=== PATIENT | female | born 1985 | race Caucasian/White ===

== ENCOUNTER 2016-06-25 16:18 | Emergency (ER) | payer OTHER ==
[2016-06-25 16:26] VITALS: BP 126/65
== END 2016-06-25 16:42 | disposition left against medical advice (07) ==
LOC: ED 16:18
DX: K08.89 Other specified disorders of teeth and supporting structures (principal); Z53.21 Procedure and treatment not carried out due to patient leaving prior to being seen by health care provider

== ENCOUNTER 2016-07-07 19:24 | Emergency (ER) | payer OTHER ==
[2016-07-07 19:41] VITALS: BP 123/69
[2016-07-07] MEDS ORDERED: HYDROcodone/ACETAMIN 5-325 MG* 1 TAB PO ONE ×2 (21:43→22:38)
--- NOTE | 2016-07-07 22:34 | RAD ---
Indication: Trismus, left-sided jaw pain. CT of the facial bones was obtained in the axial plane. Sagittal and coronal reconstructed images were obtained. The mandible demonstrates no evidence of fracture. Temporomandibular joints are in expected location. The pterygoid muscles and masseter muscles are unremarkable. The maxilla demonstrates no evidence of fracture. Pterygoid plates are unremarkable. Nasal septal deviation towards the right is noted. Mucosal thickening of the left maxillary sinus is noted. Ethmoid air cells are unremarkable. The sphenoid sinuses demonstrates mucosal thickening of the right sphenoid sinus. Mastoid air cells are otherwise unremarkable. There is a dental caries noted in the posterior lateral surface of the left lower first molar. Additional dental caries is noted in the left upper first molar posteriorly. Other dental caries are noted. No definite abscess is identified. IMPRESSION: UNREMARKABLE MANDIBLE OR FACIAL BONES. MUCOSAL THICKENING OF THE ETHMOID AIR CELLS, LEFT MAXILLARY SINUS AND SPHENOID SINUS. MULTIPLE DENTAL CARIES ARE NOTED ESPECIALLY IN THE LEFT LOWER FIRST MOLAR AND LEFT UPPER FIRST MOLAR.
[2016-07-07] MEDS ORDERED: LoraTADine TAB(NF) 10 MG TAB (AUTOSUB to CETIRIZINE) PO ONE (22:37)
[2016-07-07] MEDS ORDERED: Cephalexin CAP* 500 MG PO ONE ×2 (22:38→22:52)
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
== END 2016-07-07 23:15 | disposition home or self-care (01) ==
LOC: ED 19:24
DX: S02.5XXA Fracture of tooth (traumatic), initial encounter for closed fracture (principal); K08.89 Other specified disorders of teeth and supporting structures; F17.200 Nicotine dependence, unspecified, uncomplicated; Z88.0 Allergy status to penicillin; X58.XXXA Exposure to other specified factors, initial encounter; Y92.9 Unspecified place or not applicable
CPT/HCPCS: 70486; 87651; 99282; A9270-GY

== ENCOUNTER 2016-07-18 13:55 | Emergency (ER) | payer OTHER ==
[2016-07-18 14:09] VITALS: BP 136/71
[2016-07-18] MEDS ORDERED: oxyCODONE/Acetamin 5/325 MG* TAB PO ONE (15:24)
[2016-07-18] MEDS ORDERED: Cephalexin CAP* 500 MG PO ONE (15:24)
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
== END 2016-07-18 15:35 | disposition home or self-care (01) ==
LOC: ED 13:55
DX: K08.89 Other specified disorders of teeth and supporting structures (principal); F17.210 Nicotine dependence, cigarettes, uncomplicated
CPT/HCPCS: 99282; A9270-GY

== ENCOUNTER 2016-07-19 14:13 | Emergency (ER) | payer OTHER ==
[2016-07-19 14:17] VITALS: BP 121/72
[2016-07-19] MEDS ORDERED: oxyCODONE/Acetamin 5/325 MG* TAB PO ONE (15:38)
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
== END 2016-07-19 16:12 | disposition home or self-care (01) ==
LOC: ED 14:13
DX: S02.5XXA Fracture of tooth (traumatic), initial encounter for closed fracture (principal); K08.89 Other specified disorders of teeth and supporting structures; F17.210 Nicotine dependence, cigarettes, uncomplicated; W50.1XXA Accidental kick by another person, initial encounter; Y93.9 Activity, unspecified; Y92.9 Unspecified place or not applicable; Y99.9 Unspecified external cause status
CPT/HCPCS: 99281; A9270-GY

== ENCOUNTER 2016-08-02 14:59 | Emergency (ER) | payer OTHER ==
[2016-08-02] MEDS ORDERED: oxyCODONE/Acetamin 5/325 MG* TAB PO ONE (17:49)
[2016-08-02] MEDS ORDERED: DOXYcycline CAP(*) 100 MG PO ONE (17:56)
[2016-08-02 18:04] VITALS: BP 143/87
--- NOTE | 2016-08-02 18:33 | ED ---
Skin Complaint - HPI Summary HPI Summary: 31F w/ PMH of MRSA presents with abscess of right leg for 4 days. She states she had a boil that placed bandage on and when she took off bandage it ripped the skin off and she noticed some pus from it. She states that the redness spread and has been oozing some pus. She states this is how her normal MRSA looks. She states she is allergic to bactrim and resistant to clindamycin. She takes minocycline normal for it. She denies any fever. She denies any burn to the area. She denies any new products. - History of Current Complaint Chief Complaint: EDExtremityLower Time Seen by Provider: 08/02/16 17:37 Stated Complaint: LEG INFECTION Pain Intensity: 10 - Allergy/Home Medications Allergies/Adverse Reactions: Allergies Allergy/AdvReac Type Severity Reaction Status Date / Time Diphenhydramine Allergy Anaphylatic Verified 07/07/16 20:46 [From Benadryl] Shock Ibuprofen Allergy GI Upset Verified 07/18/16 14:47 Ketorolac Tromethamine Allergy Nausea And Verified 07/07/16 20:46 [From Toradol] Vomiting Linezolid Allergy Unknown Verified 07/18/16 14:47 Reaction Details Naproxen Allergy Nausea And Verified 07/07/16 20:46 Vomiting Penicillins [PCN] Allergy Rash Verified 07/07/16 20:46 Sulfamethoxazole Allergy Unknown Verified 07/18/16 14:43 w/Trimethoprim Reaction [From Bactrim] Details Tramadol Allergy Rash Verified 07/07/16 20:46 PMH/Surg Hx/FS Hx/Imm Hx Endocrine/Hematology History: Reports: Other Endocrine/Hematological Disorders - pituitary tumor Denies: Hx Diabetes Cardiovascular History: Denies: Hx Hypertension, Hx Pacemaker/ICD Respiratory History: Denies: Hx Asthma History: Reports: Other Problems/Disorders - KIDNEY AND BLADDER INFECTIONS Denies: Hx Renal Disease - HX KIDNEY INFECTIONS Sensory History: Denies: Hx Hearing Aid Psychiatric History: Denies: Hx Panic Disorder - Cancer History Cancer Type, 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 2005 RT GREAT TOE SURGERY;. 2007 GALLBLADDER, T. TUBAL LIGATION;. MRSA- RT ARM SWEAT GLANDS REMOVED, 2010. LT BACK SHOULDER; 2014. STAGE 2 CERVICAL CA PROCEDURE; Infectious Disease History: No Infectious Disease History: Denies: Traveled Outside the [place] in Last 30 Days - Family History Known Family History: Positive: None Negative: Cardiac Disease - Social History Alcohol Use: None Hx Substance Use: No Substance Use Type: Reports: None Hx Tobacco Use: Yes Smoking Status (MU): Heavy Every Day Tobacco Smoker Review of Systems Positive: Fever Negative: Chest Pain Negative: Shortness Of Breath Positive: Other - redness of right calf All Other Systems Reviewed And Are Negative: Yes Physical Exam Triage Information Reviewed: Yes Vital Signs On Initial Exam: Initial Vitals Temp Pulse Resp BP Pulse Ox 98.6 F 93 18 134/85 100 08/02/16 15:19 08/02/16 15:19 08/02/16 15:19 08/02/16 15:19 08/02/16 15:19 Vital Signs Reviewed: Yes Appearance: Positive: Well-Appearing Skin: Positive: Warm, Other - 15 cm by 10 cm area of pustular cellulitis on right calf with some surrounding streaking, no area of loculation felt or crepitus. Head/Face: Positive: Normal Head/Face Inspection Eyes: Positive: Normal, Conjunctiva Clear Respiratory/Lung Sounds: Positive: Clear to Auscultation, Breath Sounds Present Cardiovascular: Positive: Normal, RRR Musculoskeletal: Positive: Strength/ROM Intact - of right knee and ankle, Other - good pulses - Nitin Coma Scale Coma Scale Total: 15 Diagnostics - Vital Signs Vital Signs Temp Pulse Resp BP Pulse Ox 08/02/16 17:57 99.2 F 73 16 143/87 99 08/02/16 17:56 18 08/02/16 15:19 98.6 F 93 18 134/85 100 - Laboratory Lab Statement: Any lab studies that have been ordered have been reviewed, and results considered in the medical decision making process. Course/Dx - Course Course Of Treatment: 31F presents with boil that ruptured with pustular discharge that became large area of erythema on right calf over past 4 days. states this is how her MRSA strain looks like. has seen dr Wang in past for this. is resitant to clindamycin. on exam appears to be pustular cellulitis ( almost looks burn like) with no palpable area of loculation and no crepitus felt. afebrile. will treat with doxcycline and gave pain medication. patient understands and agrees with plan - Differential Diagnoses - Skin Complaint Differential Diagnoses: Abscess, Cellulitis, Contact Dermatitis - Diagnoses Provider Diagnoses: Cellulitis of right leg Discharge - Discharge Plan Condition: Good Disposition: HOME Prescriptions: DOXYcycline CAP(*) [DOXYcycline 100MG CAP(*)] 100 mg PO BID #19 cap oxyCODONE/Acetamin 5/325 MG* [Percocet 5/325 TAB*] 1 tab PO Q6H PRN #12 tab MDD 4 PRN Reason: Pain Patient Education Materials: Cellulitis (ED) Referrals: No Primary Care Phys,NOPCP [Primary Care Provider] - Additional Instructions: Take doxycycline twice a day for 10 days, first dose given in ED Place ice on area, keep elevated Use Tylenol every 6 hours and take narcotic every 6 hours for break through pain Return to ED if redness spreads, develop fever, or any new or worsening symptoms
== END 2016-08-02 18:52 | disposition home or self-care (01) ==
LOC: ED 14:59
DX: L03.115 Cellulitis of right lower limb (principal); R50.9 Fever, unspecified; F17.210 Nicotine dependence, cigarettes, uncomplicated
CPT/HCPCS: 99282; A9270-GY

== ENCOUNTER 2016-08-23 10:31 | Emergency (ER) | payer OTHER ==
[2016-08-23 10:52] VITALS: BP 145/81
[2016-08-23] MEDS ORDERED: Clindamycin CAP* 150 MG PO ONE (11:25)
--- NOTE | 2016-08-30 10:21 | ED ---
Lower Extremity - HPI Summary HPI Summary: Patient presents after being referred by Dr. Wang's nurse for evaluation of a chronic wound. She says she has been placed on doxycycline by a provider at this facility, but "knows she needs keflex to heal her wound" even though she has MRSA. She has been using narcotic medication for pain and has run out as well. The wound is on the outside of the left leg and she says she had an Abdullahi bandage over it that became embedded in the tissue and was "ripped away when she took it off". She denies fever, chills, increased redness or streaking. There is a clear drainage from the area without swelling but she reports it is too painful to walk. - History of Current Complaint Chief Complaint: EDExtremityLower Stated Complaint: WOUND ON LT LEG Time Seen by Provider: 08/23/16 10:58 Hx Obtained From: Patient, Family/Solo Musician Onset of Pain: Days Onset/Duration: Still Present Severity Initially: Moderate Severity Currently: Severe Pain Intensity: 8 Pain Scale Used: Adult Non Verbal Timing: Constant Location: Is Discrete @ - left lateral calf Character Of Pain: Sharp, Aching, Burning Associated Signs And Symptoms: Positive: Redness Aggravating Factor(s): Standing Alleviating Factor(s): Nothing Able to Bear Weight: Yes - Allergies/Home Medications Allergies/Adverse Reactions: Allergies Allergy/AdvReac Type Severity Reaction Status Date / Time Diphenhydramine Allergy Anaphylatic Verified 08/20/16 11:59 [From Benadryl] Shock Ibuprofen Allergy GI Upset Verified 08/20/16 11:59 Ketorolac Tromethamine Allergy Nausea And Verified 08/20/16 11:59 [From Toradol] Vomiting Linezolid Allergy Unknown Verified 08/20/16 11:59 Reaction Details Naproxen Allergy Nausea And Verified 08/20/16 11:59 Vomiting Penicillins [PCN] Allergy Rash Verified 08/20/16 11:59 Sulfamethoxazole Allergy Unknown Verified 08/20/16 11:59 w/Trimethoprim Reaction [From Bactrim] Details Tramadol Allergy Rash Verified 08/20/16 11:59 PMH/Surg Hx/FS Hx/Imm Hx Endocrine/Hematology History: Reports: Other Endocrine/Hematological Disorders - pituitary tumor Denies: Hx Diabetes Cardiovascular History: Denies: Hx Hypertension, Hx Pacemaker/ICD Respiratory History: Denies: Hx Asthma History: Reports: Other Problems/Disorders - KIDNEY AND BLADDER INFECTIONS Denies: Hx Renal Disease - HX KIDNEY INFECTIONS Sensory History: Denies: Hx Hearing Aid Psychiatric History: Denies: Hx Panic Disorder - Cancer History Cancer Type, 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 2004 RT GREAT TOE SURGERY;. 2007 GALLBLADDER, T. TUBAL LIGATION;. MRSA- RT ARM SWEAT GLANDS REMOVED, 2009. LT BACK SHOULDER; 2014. STAGE 2 CERVICAL CA PROCEDURE; Infectious Disease History: Yes Infectious Disease History: Denies: Traveled Outside the [place] in Last 30 Days - Family History Known Family History: Positive: None Negative: Cardiac Disease - Social History Occupation: Unemployed Lives: With Family Alcohol Use: None Hx Substance Use: No Substance Use Type: Reports: None Hx Tobacco Use: Yes Smoking Status (MU): Heavy Every Day Tobacco Smoker Cessation Counseling: Patient Advised to Stop Review of Systems Negative: Edema Positive: Other - 4x4 cm well healing wound to left lateral calf Negative: Paresthesia, Numbness All Other Systems Reviewed And Are Negative: Yes Physical Exam - Summary Physical Exam Summary: Patient is curled in position crying, and asking for pain medication when I enter room. Triage Information Reviewed: Yes Vital Signs On Initial Exam: Initial Vitals Temp Pulse Resp BP 98.5 F 77 20 145/81 08/23/16 10:50 08/23/16 10:50 08/23/16 10:50 08/23/16 10:50 Vital Signs Reviewed: Yes Appearance: Positive: Well-Appearing, Well-Nourished, Pain Distress Skin: Positive: Warm, Skin Color Reflects Adequate Perfusion, Dry, Tender - 4 x 4 cm area with beefy red granulation tissue within the wound without extending erythema or streaking. Serosanguinous drainage noted without signs of infection. , Soft Head/Face: Positive: Normal Head/Face Inspection Eyes: Positive: EOMI, TIA, Conjunctiva Clear Respiratory/Lung Sounds: Positive: Breath Sounds Present Cardiovascular: Positive: RRR Musculoskeletal: Positive: Limited @ - Patient unwilling to attempt to move her knee or ankle. No edema or erythema noted Neurological: Positive: Sensory/Motor Intact, Alert, Oriented to Person Place, Time, Unable to Assess Gait Psychiatric: Positive: Other - patient cries during exam AVPU Assessment: Alert Diagnostics - Vital Signs Vital Signs Temp Pulse Resp BP Pulse Ox 08/23/16 11:41 98.7 F 08/23/16 10:52 98.6 F 78 20 145/81 99 08/23/16 10:50 98.5 F 77 20 145/81 - Laboratory Lab Statement: Any lab studies that have been ordered have been reviewed, and results considered in the medical decision making process. Lower Extremity Course/Dx - Course Course Of Treatment: I let the patient know I would be happy to give her Tylenol for her pain but that narcotic medication was not appropriate for her condition. I called Dr. Wang's office to confer with him regarding this patient's care. I was informed by nursing that the patient left without accepting treatment. I spoke with Dr. Wang afterwards, who said he would see her in his office. - Diagnoses Differential Diagnosis/HQI/PQRI: Positive: Burn, Cellulitis, Compartment Syndrome, DVT, Gout, Infection, Phlebitis, Sprain, Strain Provider Diagnoses: Healing wound Discharge - Discharge Plan Condition: Stable Disposition: HOME Prescriptions: Clindamycin Cap(NF) [Cleocin 300 mg Cap(NF)] 300 mg PO Q6H #39 cap Patient Education Materials: Acute Wound Care (ED) Referrals: Kathleen RICARDO,Syed Rodriguez [Medical Doctor] - No Primary Care Phys,NOPCP [Primary Care Provider] - Additional Instructions: Please stop taking the doxycycline and begin using Clindamycin as prescribed until it is completely gone. Keep your wound open to air and if you do need to cover it, you need to use non-stick dressing or you will continue to tear away the healing skin that appears to be growing now. You may have some mild drainage but unless it is green like mucous, it can be normal. If you develop a temperature of 100.4 or greater or you notice red streak running up your leg, return to the ED for evaluation. Call Dr. Wang's office for an appointment.
== END 2016-08-23 11:41 | disposition home or self-care (01) ==
LOC: ED 10:31
DX: S81.802A Unspecified open wound, left lower leg, initial encounter (principal); X58.XXXA Exposure to other specified factors, initial encounter; Y93.9 Activity, unspecified; Y92.89 Other specified places as the place of occurrence of the external cause; F17.210 Nicotine dependence, cigarettes, uncomplicated
CPT/HCPCS: 99282; A9270-GY

== ENCOUNTER 2016-08-31 20:14 | Emergency (ER) | payer OTHER ==
[2016-08-31] MEDS ORDERED: oxyCODONE/Acetamin 5/325 MG* TAB PO ONE (21:00)
[2016-08-31 21:41] VITALS: BP 122/67
--- NOTE | 2016-08-31 22:35 | ED ---
Elmo Godfrey Alfonso, scribed for Yrn Beard MD on 08/31/16 at 2058 . Lower Extremity - HPI Summary HPI Summary: This patient is a 31 year old female presenting to [facility] for a swollen left leg since 11 days ago. Her left LE is wounded and erythematous. Sx aggravated by ambulation and alleviated by nothing. She rates the sharp pain 9/10 in severity and reports it hurts so bad I cant sleep. She is being seen by Dr. Wang for this infection and is currently on abx. PMHx of MRSA infections and cervical cancer. - History of Current Complaint Chief Complaint: EDExtremityLower Stated Complaint: LT LEG SWOLLEN Time Seen by Provider: 08/31/16 20:47 Hx Obtained From: Patient Onset of Pain: Days - 11 days, Prior to Arrival Onset/Duration: Still Present - 11 days Severity Initially: Severe Severity Currently: Severe Pain Intensity: 9 Pain Scale Used: 0-10 Numeric Timing: Constant Location: Is Discrete @ - Left LE Character Of Pain: Sharp Associated Signs And Symptoms: Positive: Swelling, Redness Aggravating Factor(s): Ambulation Alleviating Factor(s): Rest - Allergies/Home Medications Allergies/Adverse Reactions: Allergies Allergy/AdvReac Type Severity Reaction Status Date / Time Diphenhydramine Allergy Anaphylatic Verified 08/20/16 11:59 [From Benadryl] Shock Ibuprofen Allergy GI Upset Verified 08/20/16 11:59 Ketorolac Tromethamine Allergy Nausea And Verified 08/20/16 11:59 [From Toradol] Vomiting Linezolid Allergy Unknown Verified 08/20/16 11:59 Reaction Details Naproxen Allergy Nausea And Verified 08/20/16 11:59 Vomiting Penicillins [PCN] Allergy Rash Verified 08/20/16 11:59 Sulfamethoxazole Allergy Unknown Verified 08/20/16 11:59 w/Trimethoprim Reaction [From Bactrim] Details Tramadol Allergy Rash Verified 08/20/16 11:59 PMH/Surg Hx/FS Hx/Imm Hx Endocrine/Hematology History: Reports: Other Endocrine/Hematological Disorders - pituitary tumor Denies: Hx Diabetes Cardiovascular History: Denies: Hx Hypertension, Hx Pacemaker/ICD Respiratory History: Denies: Hx Asthma History: Reports: Other Problems/Disorders - KIDNEY AND BLADDER INFECTIONS Denies: Hx Renal Disease - HX KIDNEY INFECTIONS Sensory History: Denies: Hx Hearing Aid Psychiatric History: Denies: Hx Panic Disorder - Cancer History Cancer Type, 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 2004 RT GREAT TOE SURGERY;. 2007 GALLBLADDER, T. TUBAL LIGATION;. MRSA- RT ARM SWEAT GLANDS REMOVED, 2009. LT BACK SHOULDER; 2014. STAGE 2 CERVICAL CA PROCEDURE; Infectious Disease History: Yes Infectious Disease History: Denies: Traveled Outside the [place] in Last 30 Days - Family History Known Family History: Negative: Cardiac Disease - Social History Alcohol Use: None Hx Substance Use: No Substance Use Type: Reports: None Hx Tobacco Use: Yes Smoking Status (MU): Heavy Every Day Tobacco Smoker Review of Systems Negative: Fever Positive: Edema - Left LE Positive: Other - wounded and erythematous left LE All Other Systems Reviewed And Are Negative: Yes Physical Exam Triage Information Reviewed: Yes Vital Signs On Initial Exam: Initial Vitals Temp Pulse Resp BP Pulse Ox 97.6 F 79 16 128/68 100 08/31/16 20:15 08/31/16 20:15 08/31/16 20:15 08/31/16 20:15 08/31/16 20:15 Vital Signs Reviewed: Yes Appearance: Positive: Well-Appearing, No Pain Distress Skin: Positive: Other - Erythematous area in her left LE laterally Head/Face: Positive: Normal Head/Face Inspection Eyes: Positive: Normal ENT: Positive: Normal ENT inspection Neck: Positive: Supple, Nontender Respiratory/Lung Sounds: Positive: Clear to Auscultation, Breath Sounds Present Cardiovascular: Positive: RRR Abdomen Description: Positive: Nontender, Soft Bowel Sounds: Positive: Present Musculoskeletal: Positive: Edema Left - Left foot diffusely swollen Neurological: Positive: Normal, Sensory/Motor Intact, Alert, Oriented to Person Place, Time, CN Intact II-III Psychiatric: Positive: Normal - [place] Coma Scale Coma Scale Total: 15 Diagnostics - Vital Signs Vital Signs Temp Pulse Resp BP Pulse Ox 08/31/16 20:45 97.6 F 79 16 126/78 99 08/31/16 20:15 97.6 F 79 16 128/68 100 - Laboratory Lab Statement: Any lab studies that have been ordered have been reviewed, and results considered in the medical decision making process. Lower Extremity Course/Dx - Course Course Of Treatment: Ms. Villanueva has a convoluted story of rash and antibiotics and changing PMDs. The bottom line is that she wants something for pain from her infection which is being treated by Dr. Wang. I sent her home with some percocets and recommended that she F/U with her own MD's for chronic pain control. - Diagnoses Provider Diagnoses: Skin infection Discharge - Discharge Plan Condition: Stable Disposition: HOME Patient Education Materials: Wound Infection (ED) Referrals: Kathleen RICARDO,Syed Rodriguez [Medical Doctor] - 3 Days The documentation as recorded by the Elmo sommer Alfonso accurately reflects the service I personally performed and the decisions made by me, Yrn Beard MD.
== END 2016-08-31 21:41 | disposition home or self-care (01) ==
LOC: ED 20:14
DX: L08.9 Local infection of the skin and subcutaneous tissue, unspecified (principal); Z88.0 Allergy status to penicillin
CPT/HCPCS: 99282; A9270-GY

== ENCOUNTER 2016-10-10 20:48 | Emergency (ER) | payer OTHER ==
[2016-10-11] MEDS ORDERED: Ondansetron INJ* 2 MG/ML VIAL IV ONE (02:23)
[2016-10-11] MEDS ORDERED: Morphine INJ* 4 MG/ML 1 ML SYRINGE IV ONE ×2 (02:23→03:52)
[2016-10-11] MEDS ORDERED: NS 0.9% 1000 ML* 1,000 ML IV ONE (02:23)
--- NOTE | 2016-10-11 02:32 | ED ---
Abdominal Pain/Female - HPI Summary HPI Summary: Pt here w/ lower ab pain x 3-4 days. Noticed this started the day she was supposed to start her period - felt like cramping pain as though she may get her period but never got period and pain has gotten worse. She is sexually active with her but does not believe she's as she's had a tubal ligation. Denies vaginal irritation, d/c or foul odor and no dyspareunia nor post coital bleeding. She does have a h/o "aggressive" cervical cancer cells and had a procedure to remove part of cervix only. 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 She does not have a f.u until October. No h/o ovarian issues. Associated sx are nausea w/ vomiting (intermittently). BM's have been normal. Nausea is better if she lies on her side, worse w/ moving around. Denies dysuria, urinary frequency, flank pain. Also denies fever, chills. She also reports Lt foot pain w/ acute on chronic wound. Has h/o MRSA and has been slowly healing here. Recently knicked foot on a wire basket on the floor - peeled scab and redness, pain and swelling worse since. Pain w/ moving toes, ankle. Reports doxycycline doesn't work anymore but she's had clindamycin and keflex in the past. - History of Current Complaint Chief Complaint: EDAbdHolland Stated Complaint: ABD PAIN,LEFT FOOT PAIN Time Seen by Provider: 10/11/16 01:39 Hx Obtained From: Patient Pain Intensity: 8 Allergies/Adverse Reactions: Allergies Allergy/AdvReac Type Severity Reaction Status Date / Time Diphenhydramine Allergy Anaphylatic Verified 08/20/16 11:59 [From Benadryl] Shock Ibuprofen Allergy GI Upset Verified 08/20/16 11:59 Ketorolac Tromethamine Allergy Nausea And Verified 08/20/16 11:59 [From Toradol] Vomiting Linezolid Allergy Unknown Verified 08/20/16 11:59 Reaction Details Naproxen Allergy Nausea And Verified 08/20/16 11:59 Vomiting Penicillins [PCN] Allergy Rash Verified 08/20/16 11:59 Sulfamethoxazole Allergy Unknown Verified 08/20/16 11:59 w/Trimethoprim Reaction [From Bactrim] Details Tramadol Allergy Rash Verified 08/20/16 11:59 PMH/Surg Hx/FS Hx/Imm Hx Previously Healthy: Yes Endocrine/Hematology History: Reports: Other Endocrine/Hematological Disorders - pituitary tumor Denies: Hx Anticoagulant Therapy, Hx Blood Disorders, Hx Diabetes, Hx Thyroid Disease, Hx Anemia, Autoimmune Disease Cardiovascular History: Denies: Hx Hypertension, Hx Pacemaker/ICD Respiratory History: Denies: Hx Asthma GI History: Reports: Hx Gall Bladder Disease - h/o cholecystectomy History: Reports: Other Problems/Disorders - KIDNEY AND BLADDER INFECTIONS Denies: Hx Renal Disease - HX KIDNEY INFECTIONS Sensory History: Denies: Hx Hearing Aid Psychiatric History: Denies: Hx Panic Disorder, Hx Substance Abuse - Cancer History Cancer Type, 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 2004 RT GREAT TOE SURGERY;. 2007 GALLBLADDER, T. TUBAL LIGATION;. MRSA- RT ARM SWEAT GLANDS REMOVED, 2009. LT BACK SHOULDER; 2014. 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 Lives: With Family - Alcohol Use: None Hx Substance Use: No Substance Use Type: Reports: None Hx Tobacco Use: Yes Smoking Status (MU): Current Every Day Smoker Amount Used/How Often: 1 PPD Review of Systems Constitutional: Negative Positive: Dental Pain - Rt upper rear tooth w/ suspected abscess last week - ruptured, pain less, foul taste in mouth at times, less swelling since rupture, Sore Throat - last week, Nasal Discharge - this week Cardiovascular: Negative Negative: Palpitations, Chest Pain Positive: Cough - new onset Gastrointestinal: Other - see HPI Genitourinary: Negative Musculoskeletal: Other - see HPI Skin: Other - see HPI Neurological: Negative Negative: Headache, Weakness, Paresthesia, Numbness, Syncope, Slurred Speech Positive: Anxious All Other Systems Reviewed And Are Negative: Yes Physical Exam Triage Information Reviewed: Yes Vital Signs On Initial Exam: Initial Vitals Temp Pulse Resp BP Pulse Ox 97.9 F 97 22 130/70 99 10/10/16 21:16 10/10/16 21:16 10/10/16 21:16 10/10/16 21:16 10/10/16 21:16 Vital Signs Reviewed: Yes Appearance: Positive: Ill-Appearing, Pain Distress, Obese Skin: Positive: Warm, Dry - linear scab over Lt dorsal foot from MTP joint up to mid dorsal metatarsal - pink, TTP, no induration or drainage Head/Face: Positive: Normal Head/Face Inspection Eyes: Positive: Normal, EOMI, Other: - sclera injected. Negative: Discharge ENT: Positive: Hearing grossly normal, Pharynx normal - mucosa moist, Nasal congestion, TMs normal. Negative: Tonsillar swelling, Tonsillar exudate Neck: Positive: Supple, Nontender, No Lymphadenopathy Respiratory/Lung Sounds: Positive: Clear to Auscultation, Breath Sounds Present. Negative: Rales, Rhonchi, Wheezes Cardiovascular: Positive: Normal, RRR, Pulses are Symmetrical in both Upper and Lower Extremities, S1, S2. Negative: Murmur, Rub, Leg Edema Left, Leg Edema Right Abdomen Description: Positive: No Organomegaly, Soft, Other: - lower ab TTP B/L - no rebounding. Negative: CVA Tenderness (R), CVA Tenderness (L) Bowel Sounds: Positive: Present Pelvic Exam: Positive: external exam normal, discharge - white,mucousy, tender adnexa - Rt and Lt, other - cervix poorly visualized (tipped). Negative: no cerv. motion tender, active bleeding Musculoskeletal: Positive: Limited @ - Lt toe movements d/t pain at wound site - no joint edema - otherwise, moving well Neurological: Positive: Normal, Sensory/Motor Intact, Alert, Oriented to Person Place, Time, CN Intact II-III Psychiatric: Positive: Other - restless - concerned but cooperative - interjects information, appears concerned as well - [place] Coma Scale Coma Scale Total: 15 Diagnostics - Vital Signs Vital Signs Temp Pulse Resp BP Pulse Ox 10/11/16 01:00 56 16 97 10/10/16 23:01 98 F 71 16 101/53 97 10/10/16 21:16 97.9 F 97 22 130/70 99 - Laboratory Result Diagrams: 10/11/16 02:37 10/11/16 02:37 Lab Statement: Any lab studies that have been ordered have been reviewed, and results considered in the medical decision making process. Abdominal Pain Fem Course/Dx - Course Course Of Treatment: Pt presents w/ multiple sx. 1) lower ab pain + n/v x 3-4 days. Pt and partner are concerned about h/o cancer cells found in cervix - removed but pt has return of cells and HPV as of Apr 2016 - f/u in October. She does have h/o ab surgeries - moving bowels well. No urinary sx but U/A + bacteria. Vaginal swabs taken as well - no bettie infection nor structural abnormality however pt does have adnexal tenderness. 2) Also reports new onset cough w/o fever, SOB. Smokes. 3) Lt foot pain w/ recurrent infection. H/o MRSA. Pain w/ movement, touching. No anbx at present. States doxycycline doesn' t work anymore -clindamycin is not working as well either. Was last on keflex but takes a very long time to work. Bactrim allergy. WBC's are 12. w/ mildly elevated CRP - lactic acid WNL, no fever, no tachycardia and BP WNL. CMP unremarkable for acute ab pathology. Pt may benefit from further investigation of pelvic pain w/ h/o cervical cancer. U/S not available at this time - close f/ u w/ PCP/[facility] this week or early next (cx's pending) - recommend TVUS. CXR normal , no pneumonia. Will start anbx for skin infection to cover MRSA and dental abscess (clindamycin) and f/u w/ PCP. - Diagnoses Provider Diagnoses: Pelvic pain, Dental abscess, Foot infection Discharge - Discharge Plan Condition: Stable Disposition: HOME Prescriptions: Clindamycin CAP* [Cleocin 150 MG CAP*] 300 mg PO Q6H #80 cap Ondansetron ODT TAB* [Zofran 4 MG Odt TAB*] 4 mg PO Q8H PRN #6 tab.odt PRN Reason: Nausea Patient Education Materials: Dental Abscess (ED), Cellulitis (ED), Pelvic Pain in Women (ED) Referrals: Stormy Avery MD [Primary Care Provider] - Additional Instructions: The cause of your abdominal pain is not clearly identified today however you are reporting pelvic pain and have pelvic tenderness with exam. It is recommended you follow-up with your PCP for a transvaginal ultrasound for further investigation of reproductive organs with history of cervical cancer. You were also started on clindamycin tonight to address your foot and oral infections. Follow-up with PCP if neither improve. *If you develop fever, chills, persistent vomiting, diarrhea or lack of bowel movement, change in abdominal pain, shortness of breath or difficulty breathing/ chest pain, return to ED
[2016-10-11 02:47] LABS: Hematocrit 42 % (35-47); Hemoglobin 13.6 g/dl (12.0-16.0); Mean Corpuscular HGB Conc 33 g/dl (31-36); Mean Corpuscular Hemoglobin 27 pg (27-31); Mean Corpuscular Volume 83 fL (80-97); Mean Platelet Volume 9 um3 (7.4-10.4); Red Cell Distribution Width 15 % (10.5-15); White Blood Count 12.7 10^3/ul (3.5-10.8)
[2016-10-11 02:52] LABS: Urine Bacteria 1+ (Absent); Urine Bilirubin Negative (Negative); Urine Glucose Negative (Negative); Urine Nitrite Negative (Negative)
[2016-10-11 03:02] LABS: Albumin 4.4 g/dL (3.2-5.2); BUN/Creatinine Ratio 15.4 (8-20); C Reactive Protein 20.1 mg/L (< 5.00); Calcium 9.6 mg/dL (8.6-10.3); Globulin 3.5 g/dL (2-4); Potassium 3.5 mmol/L (3.5-5.0); Total Bilirubin 0.6 mg/dL (0.2-1.0); Total Protein 7.9 g/dL (6.4-8.9)
[2016-10-11] MEDS ORDERED: Clindamycin CAP* 150 MG PO ONE (03:51)
[2016-10-11 04:03] VITALS: BP 114/45
--- NOTE | 2016-10-11 07:50 | RAD ---
HISTORY: New onset cough COMPARISONS: None VIEWS: 4: Frontal dual-energy and lateral views of the chest. FINDINGS: CARDIOMEDIASTINAL SILHOUETTE: The cardiomediastinal silhouette is normal. EDEN: The eden are normal. PLEURA: The costophrenic angles are sharp. No pleural abnormalities are noted. LUNG PARENCHYMA: The lungs are clear. ABDOMEN: The upper abdomen is clear. There is no subphrenic gas. BONES AND SOFT TISSUES: No bone or soft tissue abnormalities are noted. OTHER: None. IMPRESSION: NO ACTIVE CARDIOPULMONARY DISEASE.
--- NOTE | 2016-10-12 14:42 | PN ---
Progress Note - Progress Note Date of Service: 10/11/16 Note: Vaginal culture swab positive for dajuan. spoke with patient at 2:30pm who was having symptoms. will treat and fluconazole sent to pharmacy. aware of worsening signs and symptoms. return if symptoms do not improve or new symptoms develop. no further change or action needed at this time.
== END 2016-10-11 04:38 | disposition home or self-care (01) ==
LOC: ED 20:48
DX: R10.2 Pelvic and perineal pain (principal); K04.7 Periapical abscess without sinus; L08.9 Local infection of the skin and subcutaneous tissue, unspecified; F17.210 Nicotine dependence, cigarettes, uncomplicated; Z88.0 Allergy status to penicillin; Z88.2 Allergy status to sulfonamides
CPT/HCPCS: 36415; 71020; 80053; 81003; 81015; 82150; 83605; 83690; 84702; 85025; 86140; 87086; 87480; 87491; 87510; 87591; 87661; 96374; 96375; 96376; 99283; A9270-GY; J2270; J2405

== ENCOUNTER 2016-10-13 19:38 | Emergency (ER) | payer OTHER ==
[2016-10-13 19:55] VITALS: BP 139/67
[2016-10-13] MEDS ORDERED: Clindamycin CAP* 150 MG PO ONE (20:19)
[2016-10-13] MEDS ORDERED: Tetan/Diph/Pertus SYR(Tdap)* 0.5 ML SYR(BOOSTRIX) use SYR IM ONE (20:20)
[2016-10-13] MEDS ORDERED: oxyCODONE/Acetamin 5/325 MG* TAB PO ONE (20:20)
--- NOTE | 2016-10-13 20:32 | ED ---
Elmo Godfrey Alfonso, scribed for Sukhi Spears on 10/13/16 at 2025 . Lower Extremity - HPI Summary HPI Summary: This patient is a 31 year old F [facility] by [place] with a chief complaint of LLE wound which began one week ago. She reports I nicked myself on a basket and it is getting worse. Pt rates the sharp pain 8/10 in severity. Symptoms aggravated by ambulation and alleviated by nothing. Pt denies ETOH use, and substance use. She refuses an X-ray. PMHx of MRSA. - History of Current Complaint Chief Complaint: EDRashSkinAbscess Stated Complaint: WOUND ON LEFT FOOT-WORSENING SYMPTOMS Time Seen by Provider: 10/13/16 20:10 Hx Obtained From: Patient Mechanism Of Injury: Blunt Trauma - "Nicked on a basket." Onset of Pain: Prior to Arrival Onset/Duration: Worse Since - 1 Severity Initially: Moderate Severity Currently: Moderate Pain Intensity: 8 Pain Scale Used: 0-10 Numeric Timing: Constant Location: Is Discrete @ - LLE Character Of Pain: Sharp Associated Signs And Symptoms: Positive: Other - Pt denies ETOH use, and substance use. Aggravating Factor(s): Ambulation Alleviating Factor(s): Nothing - Allergies/Home Medications Allergies/Adverse Reactions: Allergies Allergy/AdvReac Type Severity Reaction Status Date / Time Diphenhydramine Allergy Anaphylatic Verified 08/20/16 11:59 [From Benadryl] Shock Doxycycline Allergy Nausea And Verified 10/13/16 20:05 Vomiting Ibuprofen Allergy GI Upset Verified 08/20/16 11:59 Ketorolac Tromethamine Allergy Nausea And Verified 08/20/16 11:59 [From Toradol] Vomiting Linezolid Allergy Unknown Verified 08/20/16 11:59 Reaction Details Naproxen Allergy Nausea And Verified 08/20/16 11:59 Vomiting Penicillins [PCN] Allergy Rash Verified 08/20/16 11:59 Sulfamethoxazole Allergy Unknown Verified 08/20/16 11:59 w/Trimethoprim Reaction [From Bactrim] Details Tramadol Allergy Rash Verified 08/20/16 11:59 PMH/Surg Hx/FS Hx/Imm Hx Endocrine/Hematology History: Reports: Other Endocrine/Hematological Disorders - pituitary tumor Denies: Hx Anticoagulant Therapy, Hx Blood Disorders, Hx Diabetes, Hx Thyroid Disease, Hx Anemia Cardiovascular History: Denies: Hx Hypertension, Hx Pacemaker/ICD Respiratory History: Denies: Hx Asthma GI History: Reports: Hx Gall Bladder Disease - h/o cholecystectomy History: Reports: Other Problems/Disorders - KIDNEY AND BLADDER INFECTIONS Denies: Hx Renal Disease - HX KIDNEY INFECTIONS Sensory History: Denies: Hx Hearing Aid Psychiatric History: Denies: Hx Panic Disorder, Hx Substance Abuse - Cancer History Cancer Type, 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 2004 RT GREAT TOE SURGERY;. 2007 GALLBLADDER, T. TUBAL LIGATION;. MRSA- RT ARM SWEAT GLANDS REMOVED, 2009. LT BACK SHOULDER; 2013. STAGE 2 CERVICAL CA PROCEDURE; Infectious Disease History: Yes Infectious Disease History: Reports: Hx of Known/Suspected MRSA Denies: Traveled Outside the [place] in Last 30 Days - Family History Known Family History: Negative: Cardiac Disease - Social History Alcohol Use: None Hx Substance Use: No Substance Use Type: Reports: None Hx Tobacco Use: Yes Smoking Status (MU): Current Every Day Smoker Amount Used/How Often: 1 PPD Review of Systems Positive: Other - Positive LLE pain Positive: Other - Positive LLE pain Positive: Other - Negative ETOH use, and substance use All Other Systems Reviewed And Are Negative: Yes Physical Exam Triage Information Reviewed: Yes Vital Signs On Initial Exam: Initial Vitals Temp Pulse Resp Pulse Ox 98.4 F 84 20 98 10/13/16 19:50 10/13/16 19:50 10/13/16 19:50 10/13/16 19:50 Vital Signs Reviewed: Yes Appearance: Positive: Well-Appearing, No Pain Distress Skin: Positive: Warm, Skin Color Reflects Adequate Perfusion, Dry, Other - 4 cm abrasion at dorsal aspect of left foot. Head/Face: Positive: Normal Head/Face Inspection Eyes: Positive: EOMI, TIA ENT: Positive: Normal ENT inspection Neck: Positive: Supple, Nontender Respiratory/Lung Sounds: Positive: Clear to Auscultation, Breath Sounds Present Cardiovascular: Positive: RRR, Pulses are Symmetrical in both Upper and Lower Extremities Abdomen Description: Positive: Nontender, Soft Bowel Sounds: Positive: Present Musculoskeletal: Positive: Normal, Strength/ROM Intact Neurological: Positive: Normal, Sensory/Motor Intact, Alert, Oriented to Person Place, Time Diagnostics - Vital Signs Vital Signs Temp Pulse Resp BP Pulse Ox 10/13/16 20:01 98.4 F 78 16 139/67 98 10/13/16 19:52 98.4 F 78 20 139/67 98 10/13/16 19:50 98.4 F 84 20 98 - Laboratory Lab Statement: Any lab studies that have been ordered have been reviewed, and results considered in the medical decision making process. Lower Extremity Course/Dx - Course Assessment/Plan: 31 year old F presents to the ED with a CC of of LLE wound which began one week ago. She reports I nicked myself on a basket and it is getting worse. Pt denies ETOH use, and substance use. She refuses an X-ray. PMHx of MRSA. Patient will be discharged with Cleocin 300 mg, Percocet, and follow up from PCP within 3 days. Pt is agreeable with this plan. - Diagnoses Provider Diagnoses: Abrasion of left foot, Cellulitis of left foot Discharge - Discharge Plan Condition: Stable Disposition: HOME Prescriptions: Clindamycin Cap(NF) [Cleocin 300 mg Cap(NF)] 300 mg PO Q6H #40 cap oxyCODONE/Acetamin 5/325 MG* [Percocet 5/325 TAB*] 1 tab PO Q8H PRN #10 tab MDD 3 PRN Reason: Pain Patient Education Materials: Abrasion (ED), Cellulitis (ED) Referrals: Stormy Avery MD [Primary Care Provider] - 3 Days The documentation as recorded by the Elmo sommer Alfonso accurately reflects the service I personally performed and the decisions made by , Sukhi Spears.
== END 2016-10-13 20:58 | disposition home or self-care (01) ==
LOC: ED 19:38
DX: L03.116 Cellulitis of left lower limb (principal); S90.812A Abrasion, left foot, initial encounter; W22.8XXA Striking against or struck by other objects, initial encounter; Y92.9 Unspecified place or not applicable; F17.210 Nicotine dependence, cigarettes, uncomplicated; Z88.2 Allergy status to sulfonamides; Z88.0 Allergy status to penicillin
CPT/HCPCS: 90471; 90715; 99282; A9270-GY

== ENCOUNTER → 2016-10-22 11:10 | Emergency (ER) | payer OTHER ==
[~2016-10-22 11:10] MED LIST: Clindamycin CAP* 150 MG PO ONE; HYDROcodone/ACETAMIN 5-325 MG* 1 TAB PO ONE
[2016-10-22 15:13] VITALS: BP 141/76
--- NOTE | 2016-10-22 15:17 | ED ---
Skin Complaint - HPI Summary HPI Summary: 31 female presents with complaints of an abrasion and wound to the left chest that began a few days ago and has been worsening. Patient states she believes it was an abscess that drained on its own. She covered it with a band-aid at when she went to remove bandage she also ripped off top layer of skin make it very sensitive. Patient has history of MRSA and history of skin abscess/wounds that are similar to this episode. Denies fever/chills. States it is just painful. No current discharge. Admits to redness. No other complaints at this time. - History of Current Complaint Chief Complaint: EDRashSkinAbscess Time Seen by Provider: 10/22/16 14:56 Stated Complaint: ABRASION ON CHEST Hx Obtained From: Patient Onset/Duration: Started Days Ago Skin Exposure Onset/Duration: Days Ago Timing: Constant Onset Severity: Mild Current Severity: Moderate Pain Intensity: 8 Pain Scale Used: 0-10 Numeric Skin Location: Other: - left chest Character: Redness, Painful Aggravating Symptom(s): Nothing Alleviating Symptom(s): Treatment LABEL PRINTER: - neosporin Associated Signs & Symptoms: Negative - Allergy/Home Medications Allergies/Adverse Reactions: Allergies Allergy/AdvReac Type Severity Reaction Status Date / Time Diphenhydramine Allergy Anaphylatic Verified 10/22/16 11:16 [From Benadryl] Shock Doxycycline Allergy Nausea And Verified 10/22/16 11:16 Vomiting Ibuprofen Allergy GI Upset Verified 10/22/16 11:16 Ketorolac Tromethamine Allergy Nausea And Verified 10/22/16 11:16 [From Toradol] Vomiting Linezolid Allergy Unknown Verified 10/22/16 11:16 Reaction Details Naproxen Allergy Nausea And Verified 10/22/16 11:16 Vomiting Penicillins [PCN] Allergy Rash Verified 10/22/16 11:16 Sulfamethoxazole Allergy Unknown Verified 10/22/16 11:16 w/Trimethoprim Reaction [From Bactrim] Details Tramadol Allergy Rash Verified 10/22/16 11:16 PMH/Surg Hx/FS Hx/Imm Hx Endocrine/Hematology History: Reports: Other Endocrine/Hematological Disorders - pituitary tumor Denies: Hx Anticoagulant Therapy, Hx Blood Disorders, Hx Diabetes, Hx Thyroid Disease, Hx Anemia Cardiovascular History: Denies: Hx Hypertension, Hx Pacemaker/ICD Respiratory History: Denies: Hx Asthma GI History: Reports: Hx Gall Bladder Disease - h/o cholecystectomy History: Reports: Other Problems/Disorders - KIDNEY AND BLADDER INFECTIONS Denies: Hx Renal Disease - HX KIDNEY INFECTIONS Sensory History: Denies: Hx Hearing Aid Psychiatric History: Denies: Hx Panic Disorder, Hx Substance Abuse - Cancer History Cancer Type, 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 2004 RT GREAT TOE SURGERY;. 2007 GALLBLADDER, T. TUBAL LIGATION;. MRSA- RT ARM SWEAT GLANDS REMOVED, 2009. LT BACK SHOULDER; 2014. STAGE 2 CERVICAL CA PROCEDURE; - Immunization History Immunizations Up to Date: Yes Infectious Disease History: Reports: Hx of Known/Suspected MRSA Denies: Traveled Outside the [place] in Last 30 Days - Family History Known Family History: Positive: None Negative: Cardiac Disease - Social History Alcohol Use: None Hx Substance Use: No Substance Use Type: Reports: None Hx Tobacco Use: Yes Smoking Status (MU): Current Every Day Smoker Amount Used/How Often: 1 PPD Review of Systems Constitutional: Negative Cardiovascular: Negative Respiratory: Negative Musculoskeletal: Negative Positive: Other - wound, abrasion Neurological: Negative All Other Systems Reviewed And Are Negative: Yes Physical Exam Triage Information Reviewed: Yes Vital Signs On Initial Exam: Initial Vitals Temp Pulse Resp BP Pulse Ox 97.3 F 77 16 143/71 98 10/22/16 11:16 10/22/16 11:16 10/22/16 11:16 10/22/16 11:16 10/22/16 11:16 Vital Signs Reviewed: Yes Appearance: Positive: Well-Appearing, No Pain Distress, Well-Nourished Skin: Positive: Warm, Skin Color Reflects Adequate Perfusion, Dry, Erythema @ - at left chest, just under clavicle, erythema abrasion-like, with a cellulits, no drainge at this time, questonable healing small abscess. warm to touch approximately 3cm in length 1.5cm width, circular and flat, non raised, non blanchable. tender to touch, Other - rest of skin exam normal. Negative: Cold, Pale Head/Face: Positive: Normal Head/Face Inspection Eyes: Positive: Conjunctiva Clear ENT: Positive: Pharynx normal Neck: Positive: Supple, Nontender, No Lymphadenopathy Respiratory/Lung Sounds: Positive: Clear to Auscultation, Breath Sounds Present. Negative: Rales, Rhonchi, Wheezes Cardiovascular: Positive: Normal, RRR, Pulses are Symmetrical in both Upper and Lower Extremities. Negative: Murmur, Rub Bowel Sounds: Positive: Present Musculoskeletal: Positive: Normal, Strength/ROM Intact Neurological: Positive: Normal, Sensory/Motor Intact, Alert, Oriented to Person Place, Time Psychiatric: Positive: Affect/Mood Appropriate Diagnostics - Vital Signs Vital Signs Temp Pulse Resp BP Pulse Ox 10/22/16 11:16 97.3 F 77 16 143/71 98 - Laboratory Lab Statement: Any lab studies that have been ordered have been reviewed, and results considered in the medical decision making process. Course/Dx - Course Course Of Treatment: no sign of abscess formation at this time, there fore no procedure necessary at this time. appears to be an old abscess, or healing abscess with cellulitis/abrasion. afebrile normal vitals and rest of PE no concern for other etiology at this time. will treat with pain managment and antibiotics. continue to keep clean and dry. Patient has frequent history of MRSA. Just recently treated for a different wound. No drainage to culture at this time. Aware of worsening signs and symptoms. Follow up. - Differential Diagnoses - Skin Complaint Differential Diagnoses: Abscess, Cellulitis, Contact Dermatitis, Local Allergic Reaction, MRSA - Diagnoses Provider Diagnoses: Abscess or cellulitis of chest wall Discharge - Discharge Plan Condition: Stable Disposition: HOME Prescriptions: Clindamycin HCl [Clindamycin 150 MG CAP*] 300 mg PO QID #80 cap HYDROcodone/ACETAMIN 5-325 MG* [[place] 5-325 TAB*] 1 tab PO Q6H PRN #4 tab MDD 2 PRN Reason: Pain Patient Education Materials: Abscess Follow-up (ED), Cellulitis (ED), MRSA ( Methicillin-Resistant Staphylococcus Aureus) (ED) Referrals: Stormy Avery MD [Primary Care Provider] - Additional Instructions: Take prescribed antibiotic as directed. Watch for worsening signs and symptoms and return if occur. Keep clean and dry. Follow up for re-check with primary care provider.
== END | disposition home or self-care (01) ==
LOC: ED 11:10
DX: L02.213 Cutaneous abscess of chest wall (principal); L03.313 Cellulitis of chest wall
CPT/HCPCS: 99282; A9270-GY

== ENCOUNTER → 2016-10-29 10:55 | Emergency (ER) | payer OTHER ==
[~2016-10-29 10:55] MED LIST changes: +Acetaminophen TAB* 325 MG PO ONE; -Clindamycin CAP* 150 MG PO ONE; -HYDROcodone/ACETAMIN 5-325 MG* 1 TAB PO ONE
[2016-10-29 11:03] VITALS: BP 129/88
--- NOTE | 2016-10-29 11:55 | ED ---
Upper Extremity Pain - HPI Summary HPI Summary: Patient presents 1 day s/p mechanical fall with CC of left elbow and forearm pain and right knee pain. Pain i 10/10, constant and throbbing. Denies hitting her head or LOC. There are some bruises noted over the left forearm and right hand and over the right knee. She is seen here frequently for pain and pain medication requests. She is a smoker, lives with BF and ETOH occasionally. Denies significant health problems. Denies N/V/C/D or any back pain. Denies visual disturbances. She is able to ambulate, but with pain. Pain is located over the anterior knee over the patella with no pain posteriorly. She is unable to move the elbow, so PE could not be performed. - History of Current Complaint Chief Complaint: EDTraumaMultiple Stated Complaint: FELL 6 STAIRS ARM INJURY, KNEE INJURY Time Seen by Provider: 10/29/16 11:04 Hx Obtained From: Patient Mechanism Of Injury: Direct Blow Onset/Duration: Started Days Ago Timing: Intermittent Severity Initially: Moderate Severity Currently: Moderate Pain Location: Elbow, Wrist Character: Aching Aggravating Factor(s): Movement, Lifting, Flexion, Extension, Internal/External Rotation Alleviating Factor(s): Nothing Associated Signs & Symptoms: Positive: Bruising - Risk Factors Non-Orthopedic Risk Factor: Negative DVT Risk Factors: Negative Septic Arthritis Risk Factor: Negative - Allergies/Home Medications Allergies/Adverse Reactions: Allergies Allergy/AdvReac Type Severity Reaction Status Date / Time Diphenhydramine Allergy Anaphylatic Verified 10/29/16 11:02 [From Benadryl] Shock Doxycycline Allergy Nausea And Verified 10/29/16 11:02 Vomiting Ibuprofen Allergy GI Upset Verified 10/29/16 11:02 Ketorolac Tromethamine Allergy Nausea And Verified 10/29/16 11:02 [From Toradol] Vomiting Linezolid Allergy Unknown Verified 10/29/16 11:02 Reaction Details Naproxen Allergy Nausea And Verified 10/29/16 11:02 Vomiting Penicillins [PCN] Allergy Rash Verified 10/29/16 11:02 Sulfamethoxazole Allergy Unknown Verified 10/29/16 11:02 w/Trimethoprim Reaction [From Bactrim] Details Tramadol Allergy Rash Verified 10/29/16 11:02 PMH/Surg Hx/FS Hx/Imm Hx Previously Healthy: Yes Endocrine/Hematology History: Reports: Other Endocrine/Hematological Disorders - pituitary tumor Denies: Hx Anticoagulant Therapy, Hx Blood Disorders, Hx Diabetes, Hx Thyroid Disease, Hx Anemia Cardiovascular History: Denies: Hx Hypertension, Hx Pacemaker/ICD Respiratory History: Denies: Hx Asthma GI History: Reports: Hx Gall Bladder Disease - h/o cholecystectomy History: Reports: Other Problems/Disorders - KIDNEY AND BLADDER INFECTIONS Denies: Hx Renal Disease - HX KIDNEY INFECTIONS Sensory History: Denies: Hx Hearing Aid Psychiatric History: Denies: Hx Panic Disorder, Hx Substance Abuse - Cancer History Cancer Type, 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 2005 RT GREAT TOE SURGERY;. 2007 GALLBLADDER, T. TUBAL LIGATION;. MRSA- RT ARM SWEAT GLANDS REMOVED, 2009. LT BACK SHOULDER; 2014. STAGE 2 CERVICAL CA PROCEDURE; - Immunization History Hx Pertussis Vaccination: No Immunizations Up to Date: Unable to Obtain/Confirm Infectious Disease History: Reports: Hx of Known/Suspected MRSA Denies: Traveled Outside the [place] in Last 30 Days - Family History Known Family History: Positive: None Negative: Cardiac Disease - Social History Occupation: Unemployed Lives: With Family Alcohol Use: None Hx Substance Use: No Substance Use Type: Reports: None Hx Tobacco Use: Yes Smoking Status (MU): Current Every Day Smoker Amount Used/How Often: 1 PPD Review of Systems Constitutional: Negative Eyes: Negative Respiratory: Negative Gastrointestinal: Negative Positive: no symptoms reported, see HPI Positive: Arthralgia, Myalgia Positive: Bruising Neurological: Negative All Other Systems Reviewed And Are Negative: Yes Physical Exam Triage Information Reviewed: Yes Vital Signs On Initial Exam: Initial Vitals Temp Pulse Resp BP Pulse Ox 96.7 F 83 16 129/88 98 10/29/16 11:02 10/29/16 11:02 10/29/16 11:02 10/29/16 11:02 10/29/16 11:02 Vital Signs Reviewed: Yes Appearance: Positive: Well-Appearing, Well-Nourished Skin: Positive: Warm, Skin Color Reflects Adequate Perfusion, Other - ecchymosis over left arm, right arm and right knee Eyes: Positive: Normal, EOMI, Conjunctiva Clear Neck: Positive: Supple, No Lymphadenopathy Respiratory/Lung Sounds: Positive: Clear to Auscultation, Breath Sounds Present Cardiovascular: Positive: Normal, RRR, Pulses are Symmetrical in both Upper and Lower Extremities Musculoskeletal: Positive: Pain @ - ROM of right elbow and right wrist. pain with movement and palpation over anterior knee over patella. Pulses +2 bilaterally and cap refill < 2 sec Neurological: Positive: Speech Normal Diagnostics - Vital Signs Vital Signs Temp Pulse Resp BP Pulse Ox 10/29/16 11:02 96.7 F 83 16 129/88 98 - Laboratory Lab Statement: Any lab studies that have been ordered have been reviewed, and results considered in the medical decision making process. Course/Dx - Course Course Of Treatment: Patient presents with s/p 1 day pain to left elbow, forearm and right knee. ROM of right elbow and right wrist with movement and palpation over anterior knee over patella. Pulses +2 bilaterally and cap refill < 2 sec. xrays show no acute fracture. Patient is requesting pain medication, but given hx and ISTOP with recent dispensed medication, offered Tylenol to which she refused. Assessment/Plan: Patient given note for work. - Diagnoses Differential Diagnosis/HQI/PQRI: Positive: Contusion, Fracture (Open), Fracture (Closed), Strain Provider Diagnoses: Contusion, elbow, Contusion, knee Discharge - Discharge Plan Condition: Stable Disposition: HOME Patient Education Materials: Contusion in Adults (ED) Forms: *Work Release Referrals: Stormy Avery MD [Primary Care Provider] - Additional Instructions: Tylenol as needed for any pain Ice the area 2-3 times per day Rest the area today This should begin to feel better tomorrow. Continue with the mary wrap as needed for any discomfort If you continue to have symptoms, follow up with your PCP. Note for work.
--- NOTE | 2016-10-29 12:11 | RAD ---
INDICATION: Left elbow injury COMPARISON: None TECHNIQUE: AP, lateral, and oblique views were obtained. FINDINGS: There is no acute fracture or dislocation. There is no significant joint effusion There is soft tissue swelling. IMPRESSION: NO ACUTE FRACTURE
--- NOTE | 2016-10-29 12:12 | RAD ---
INDICATION: Right knee injury. TECHNIQUE: 4 views of the right knee were obtained. FINDINGS: The bones are in normal alignment. No fracture is seen. There is a small joint effusion present. Joint spaces appear maintained. IMPRESSION: SMALL JOINT EFFUSION, NO FRACTURE IS SEEN.
--- NOTE | 2016-10-29 12:12 | RAD ---
INDICATION: Fall. Left forearm pain COMPARISON: None TECHNIQUE: AP and lateral views were obtained. FINDINGS: The bony structures, joint spaces, and soft tissues are normal for age. IMPRESSION: NO ACUTE FRACTURE.
== END | disposition home or self-care (01) ==
LOC: ED 10:55
DX: S50.02XA Contusion of left elbow, initial encounter (principal); S80.01XA Contusion of right knee, initial encounter; W10.9XXA Fall (on) (from) unspecified stairs and steps, initial encounter; Y93.9 Activity, unspecified; Y92.9 Unspecified place or not applicable; Z88.6 Allergy status to analgesic agent; Z88.5 Allergy status to narcotic agent; Z88.0 Allergy status to penicillin; Z88.2 Allergy status to sulfonamides; F17.210 Nicotine dependence, cigarettes, uncomplicated
CPT/HCPCS: 99282

== ENCOUNTER 2016-11-14 11:09 | Emergency (ER) | payer OTHER ==
[2016-11-14] MEDS ORDERED: oxyCODONE/Acetamin 5/325 MG* TAB PO ONE (12:16)
[2016-11-14] MEDS ORDERED: Clindamycin 600 MG IVPREMIX(* 600 MG/50 ML SDV IV ONE (12:17)
[2016-11-14] MEDS: NS 0.9% 1000 ML* 2,000 ML IV ONE (12:43)
[2016-11-14 13:01] LABS: Hematocrit 36 % (35-47); Hemoglobin 12.2 g/dl (12.0-16.0); Mean Corpuscular HGB Conc 34 g/dl (31-36); Mean Corpuscular Hemoglobin 28 pg (27-31); Mean Corpuscular Volume 83 fL (80-97); Mean Platelet Volume 10 um3 (7.4-10.4); Red Blood Count 4.38 10^6/ul (4.0-5.4); Red Cell Distribution Width 14 % (10.5-15); White Blood Count 10.1 10^3/ul (3.5-10.8)
--- NOTE | 2016-11-14 13:03 | RAD ---
HISTORY: Left leg wound COMPARISONS: Left foot dated September 05, 2016 VIEWS: 4, Frontal and lateral views of the left foreleg FINDINGS: BONE DENSITY: Normal. BONES: There is no displaced fracture. There is no appreciable erosion or periosteal reaction. JOINTS: There is no arthropathy. ALIGNMENT: There is no dislocation. SOFT TISSUES: Unremarkable. OTHER FINDINGS: None. IMPRESSION: NO ACUTE OSSEOUS INJURY. IF SYMPTOMS PERSIST, RECOMMEND REPEAT IMAGING.
[2016-11-14 13:15] LABS: Albumin 4.1 g/dL (3.2-5.2); BUN/Creatinine Ratio 16.4 (8-20); C Reactive Protein 48.48 mg/L (< 5.00); Calcium 9.6 mg/dL (8.6-10.3); EGFR African American 163.7 (>60); EGFR Non-African American 127.3 (>60); Globulin 3.3 g/dL (2-4); Potassium 3.7 mmol/L (3.5-5.0); Total Bilirubin 0.5 mg/dL (0.2-1.0); Total Protein 7.4 g/dL (6.4-8.9)
[2016-11-14] MEDS ORDERED: Morphine INJ* 4 MG/ML 1 ML SYRINGE IV ONE (14:30)
[2016-11-14] MEDS ORDERED: Ondansetron INJ* 2 MG/ML VIAL IV ONE (14:30)
--- NOTE | 2016-11-14 14:38 | ED ---
Elmo Godfrey Alfonso, scribed for Matthew Arzola MD on 11/14/16 at 1212 . Skin Complaint - HPI Summary HPI Summary: This patient is a 31 year old F presenting to [facility] accompanied by family with a chief complaint of LLE wound since weeks ago. She states this wound is infected. The patient rates the pain 10/10 in severity. Symptoms aggravated by nothing. Symptoms alleviated by nothing. Patient reports chills, tiredness, insomnia, and weakness. Medications reviewed. - History of Current Complaint Chief Complaint: EDExtremityLower Time Seen by Provider: 11/14/16 11:56 Stated Complaint: POSS INFECTION RT LEG Hx Obtained From: Patient Onset/Duration: Started Weeks Ago, Still Present Timing: Constant Onset Severity: Severe Current Severity: Severe Pain Intensity: 10 Pain Scale Used: 0-10 Numeric Aggravating Symptom(s): Nothing Alleviating Symptom(s): Nothing Associated Signs & Symptoms: Weakness, Chills - Allergy/Home Medications Allergies/Adverse Reactions: Allergies Allergy/AdvReac Type Severity Reaction Status Date / Time Diphenhydramine Allergy Anaphylatic Verified 11/14/16 11:23 [From Benadryl] Shock Doxycycline Allergy Nausea And Verified 11/14/16 11:23 Vomiting Ibuprofen Allergy GI Upset Verified 11/14/16 11:23 Ketorolac Tromethamine Allergy Nausea And Verified 11/14/16 11:23 [From Toradol] Vomiting Linezolid Allergy Unknown Verified 11/14/16 11:23 Reaction Details Naproxen Allergy Nausea And Verified 11/14/16 11:23 Vomiting Penicillins [PCN] Allergy Rash Verified 11/14/16 11:23 Sulfamethoxazole Allergy Unknown Verified 11/14/16 11:23 w/Trimethoprim Reaction [From Bactrim] Details Tramadol Allergy Rash Verified 11/14/16 11:23 PMH/Surg Hx/FS Hx/Imm Hx Endocrine/Hematology History: Reports: Other Endocrine/Hematological Disorders - pituitary tumor Denies: Hx Anticoagulant Therapy, Hx Blood Disorders, Hx Diabetes, Hx Thyroid Disease, Hx Anemia Cardiovascular History: Denies: Hx Hypertension, Hx Pacemaker/ICD Respiratory History: Denies: Hx Asthma GI History: Reports: Hx Gall Bladder Disease - h/o cholecystectomy History: Reports: Other Problems/Disorders - KIDNEY AND BLADDER INFECTIONS Denies: Hx Renal Disease - HX KIDNEY INFECTIONS Sensory History: Denies: Hx Hearing Aid Psychiatric History: Denies: Hx Panic Disorder, Hx Substance Abuse - Cancer History Cancer Type, 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 2004 RT GREAT TOE SURGERY;. 2007 GALLBLADDER, T. TUBAL LIGATION;. MRSA- RT ARM SWEAT GLANDS REMOVED, 2009. LT BACK SHOULDER; 2014. STAGE 2 CERVICAL CA PROCEDURE; Infectious Disease History: Yes Infectious Disease History: Reports: Hx of Known/Suspected MRSA Denies: Traveled Outside the [place] in Last 30 Days - Family History Known Family History: Negative: Cardiac Disease - Social History Alcohol Use: None Hx Substance Use: No Substance Use Type: Reports: None Hx Tobacco Use: Yes Smoking Status (MU): Heavy Every Day Tobacco Smoker Amount Used/How Often: 1 PPD Review of Systems Positive: Chills Positive: Other - LLE wound. Neurological: Other - tiredness, insomnia, and weakness All Other Systems Reviewed And Are Negative: Yes Physical Exam Triage Information Reviewed: Yes Vital Signs On Initial Exam: Initial Vitals Temp Pulse Resp BP Pulse Ox 97.9 F 78 20 107/61 100 11/14/16 11:23 11/14/16 11:23 11/14/16 11:23 11/14/16 11:23 11/14/16 11:23 Vital Signs Reviewed: Yes Appearance: Positive: Well-Appearing, No Pain Distress Skin: Positive: Warm, Skin Color Reflects Adequate Perfusion, Dry, Other - 13x4 cm left anterior aguilera wound. Head/Face: Positive: Normal Head/Face Inspection Eyes: Positive: EOMI, TIA ENT: Positive: Normal ENT inspection Neck: Positive: Supple, Nontender Respiratory/Lung Sounds: Positive: Clear to Auscultation, Breath Sounds Present Cardiovascular: Positive: RRR Abdomen Description: Positive: Nontender, Soft Bowel Sounds: Positive: Present Musculoskeletal: Positive: Normal, Strength/ROM Intact Neurological: Positive: Normal, Sensory/Motor Intact, Alert, Oriented to Person Place, Time Psychiatric: Positive: Affect/Mood Appropriate Diagnostics - Vital Signs Vital Signs Temp Pulse Resp BP Pulse Ox 11/14/16 11:39 97.9 F 78 20 107/61 100 11/14/16 11:23 97.9 F 78 20 107/61 100 - Laboratory Lab Results: Lab Results 11/14/16 11/14/16 11/14/16 Range/Units 12:40 12:40 12:40 WBC 10.1 (3.5-10.8) 10^3/ul RBC 4.38 (4.0-5.4) 10^6/ul Hgb 12.2 (12.0-16.0) g/dl Hct 36 (35-47) % MCV 83 (80-97) fL MCH 28 (27-31) pg MCHC 34 (31-36) g/dl RDW 14 (10.5-15) % Plt Count 315 (150-450) 10^3/ul MPV 10 (7.4-10.4) um3 Neut % (Auto) 76.3 (38-83) % Lymph % (Auto) 16.3 L (25-47) % [place] % (Auto) 5.4 (1-9) % Eos % (Auto) 1.3 (0-6) % Baso % (Auto) 0.7 (0-2) % Absolute Neuts (auto) 7.7 (1.5-7.7) 10^3/ul Absolute Lymphs (auto) 1.7 (1.0-4.8) 10^3/ul Absolute Monos (auto) 0.5 (0-0.8) 10^3/ul Absolute Eos (auto) 0.1 (0-0.6) 10^3/ul Absolute Basos (auto) 0.1 (0-0.2) 10^3/ul Absolute Nucleated RBC 0 10^3/ul Nucleated RBC % 0 INR (Anticoag Therapy) 1.12 H (0.89-1.11) APTT 28.6 (26.0-36.3) seconds Sodium 135 (133-145) mmol/L Potassium 3.7 (3.5-5.0) mmol/L Chloride 104 (101-111) mmol/L Carbon Dioxide 22 (22-32) mmol/L Anion Gap 9 (2-11) mmol/L BUN 9 (6-24) mg/dL Creatinine 0.55 (0.51-0.95) mg/dL Est GFR ( Amer) 163.7 (>60) Est GFR (Non-Af Amer) 127.3 (>60) BUN/Creatinine Ratio 16.4 (8-20) Glucose 93 (70-100) mg/dL Lactic Acid (0.5-2.0) mmol/L Calcium 9.6 (8.6-10.3) mg/dL Total Bilirubin 0.50 (0.2-1.0) mg/dL AST 12 L (13-39) U/L ALT 9 (7-52) U/L Alkaline Phosphatase 69 (34-104) U/L C-Reactive Protein 48.48 H (< 5.00) mg/L Total Protein 7.4 (6.4-8.9) g/dL Albumin 4.1 (3.2-5.2) g/dL Globulin 3.3 (2-4) g/dL Albumin/Globulin Ratio 1.2 (1-3) Beta HCG, Quant 0.73 mIU/mL 11/14/16 Range/Units 12:40 WBC (3.5-10.8) 10^3/ul RBC (4.0-5.4) 10^6/ul Hgb (12.0-16.0) g/dl Hct (35-47) % MCV (80-97) fL MCH (27-31) pg MCHC (31-36) g/dl RDW (10.5-15) % Plt Count (150-450) 10^3/ul MPV (7.4-10.4) um3 Neut % (Auto) (38-83) % Lymph % (Auto) (25-47) % [place] % (Auto) (1-9) % Eos % (Auto) (0-6) % Baso % (Auto) (0-2) % Absolute Neuts (auto) (1.5-7.7) 10^3/ul Absolute Lymphs (auto) (1.0-4.8) 10^3/ul Absolute Monos (auto) (0-0.8) 10^3/ul Absolute Eos (auto) (0-0.6) 10^3/ul Absolute Basos (auto) (0-0.2) 10^3/ul Absolute Nucleated RBC 10^3/ul Nucleated RBC % INR (Anticoag Therapy) (0.89-1.11) APTT (26.0-36.3) seconds Sodium (133-145) mmol/L Potassium (3.5-5.0) mmol/L Chloride (101-111) mmol/L Carbon Dioxide (22-32) mmol/L Anion Gap (2-11) mmol/L BUN (6-24) mg/dL Creatinine (0.51-0.95) mg/dL Est GFR ( Amer) (>60) Est GFR (Non-Af Amer) (>60) BUN/Creatinine Ratio (8-20) Glucose (70-100) mg/dL Lactic Acid 0.8 (0.5-2.0) mmol/L Calcium (8.6-10.3) mg/dL Total Bilirubin (0.2-1.0) mg/dL AST (13-39) U/L ALT (7-52) U/L Alkaline Phosphatase (34-104) U/L C-Reactive Protein (< 5.00) mg/L Total Protein (6.4-8.9) g/dL Albumin (3.2-5.2) g/dL Globulin (2-4) g/dL Albumin/Globulin Ratio (1-3) Beta HCG, Quant mIU/mL Result Diagrams: 11/14/16 12:40 11/14/16 12:40 Lab Statement: Any lab studies that have been ordered have been reviewed, and results considered in the medical decision making process. - Radiology Lower extremity X-ray Radiology Interpretation Completed By: Radiologist - NO ACUTE OSSEOUS INJURY. IF SYMPTOMS PERSIST, RECOMMEND REPEAT IMAGING. ED physician has reviewed this radiology report and agrees. - EKG 1152 Cardiac Rate: NL - BPM 72 EKG Rhythm: Sinus Rhythm ST Segment: Normal Ectopy: None EKG Interpretation: RBBB. Course/Dx - Course Course Of Treatment: DISCUSSED RESULTS WITH PATIENT. THE PLAN IS TO CONTINUE THE PO CLINDAMYCIN AND ADD MUPIROCIN TOPICAL AND PERCOCET PRN. F/U PMD AND WOUND CARE CLINIC; RETURN TO ED IF WORSE. - Diagnoses Provider Diagnoses: Wound of left leg, History of MRSA infection - Physician Notifications Discussed Care Of Patient With: Collin Galicia Time Discussed With Above Provider: 14:10 Instructed by Provider To: Other - Consulted Dr. Galicia (hospitalist) at 1410 who recommends wound care clinic follow up. Discharge - Discharge Plan Condition: Stable Disposition: HOME Prescriptions: Mupirocin 2% OINT* [Bactroban 2 % Oint*] 1 applic TOPICAL BID #1 tube oxyCODONE/Acetamin 5/325 MG* [Percocet 5/325 TAB*] 1 tab PO Q4H PRN #20 tab MDD 6 PRN Reason: Pain Patient Education Materials: Wound Infection (ED), Chronic Wound Care (ED) Referrals: [facility] [Outside] Stormy Avery MD [Primary Care Provider] - Additional Instructions: FOLLOW UP WITH YOUR DOCTOR AND THE WOUND CARE CLINIC. RETURN TO THE EMERGENCY DEPARTMENT FOR ANY WORSENING OF YOUR CONDITION; PAIN, SPREAD OF INFECTION, YOU FEEL ILL OR QUESTIONS OR CONCERNS. The documentation as recorded by the Elmo sommer Alfonso accurately reflects the service I personally performed and the decisions made by me, Matthew Arzola MD.
[2016-11-14 15:35] VITALS: BP 112/56
== END 2016-11-14 15:37 | disposition home or self-care (01) ==
LOC: ED 11:09
DX: S80.922A Unspecified superficial injury of left lower leg, initial encounter (principal); X58.XXXA Exposure to other specified factors, initial encounter; Y93.9 Activity, unspecified; Y92.9 Unspecified place or not applicable
CPT/HCPCS: 36415; 80053; 83605; 84702; 85025; 85610; 85730; 86140; 87040; 99283; A9270-GY; J2270; J2405

== ENCOUNTER 2016-11-19 17:29 | Emergency (ER) | payer OTHER ==
--- NOTE | 2016-11-19 18:54 | ED ---
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 She states she was here 5 days ago and again dx with cellulitis of the anterior aguilera and continues on her Clindamycin. She has been on Clindamycin since June for similar cellulitic infections of the bilateral legs. All have improved except this patch. She has an appt with wound clinic tomorrow but states she is here for a bandage change after she saw "green" under the telfa dressing. She has been using bactroban daily but continues to place the same bandage back on over the wound. Denies fevers, sweats or chills. She states the infection has not gotten worse, but has not improved wither. First MRSA cellulitis was June of this month and continues to move around on both bilateral lower extremities. She has close follow up with her PCP about a possible systemic infection, but she denies any symptoms currently. - History of Current Complaint Chief Complaint: EDGeneral Time Seen by Provider: 11/19/16 17:49 Stated Complaint: LT LEG WOUND RECHECK Hx Obtained From: Patient Onset/Duration: Started Weeks Ago Skin Exposure Onset/Duration: Weeks Ago Timing: Constant Onset Severity: Moderate Current Severity: Moderate Pain Intensity: 8 Pain Scale Used: 0-10 Numeric Skin Location: Leg Character: Pain, Redness Aggravating Symptom(s): Clothing, Touch Alleviating Symptom(s): Nothing Associated Signs & Symptoms: Tenderness - Allergy/Home Medications Allergies/Adverse Reactions: Allergies Allergy/AdvReac Type Severity Reaction Status Date / Time Diphenhydramine Allergy Anaphylatic Verified 11/14/16 11:23 [From Benadryl] Shock Doxycycline Allergy Nausea And Verified 11/14/16 11:23 Vomiting Ibuprofen Allergy GI Upset Verified 11/14/16 11:23 Ketorolac Tromethamine Allergy Nausea And Verified 11/14/16 11:23 [From Toradol] Vomiting Linezolid Allergy Unknown Verified 11/14/16 11:23 Reaction Details Naproxen Allergy Nausea And Verified 11/14/16 11:23 Vomiting Penicillins [PCN] Allergy Rash Verified 11/14/16 11:23 Sulfamethoxazole Allergy Unknown Verified 11/14/16 11:23 w/Trimethoprim Reaction [From Bactrim] Details Tramadol Allergy Rash Verified 11/14/16 11:23 PMH/Surg Hx/FS Hx/Imm Hx Previously Healthy: Yes Endocrine/Hematology History: Reports: Other Endocrine/Hematological Disorders - pituitary tumor Denies: Hx Anticoagulant Therapy, Hx Blood Disorders, Hx Diabetes, Hx Thyroid Disease, Hx Anemia Cardiovascular History: Denies: Hx Hypertension, Hx Pacemaker/ICD Respiratory History: Denies: Hx Asthma GI History: Reports: Hx Gall Bladder Disease - h/o cholecystectomy History: Reports: Other Problems/Disorders - KIDNEY AND BLADDER INFECTIONS Denies: Hx Renal Disease - HX KIDNEY INFECTIONS Sensory History: Denies: Hx Hearing Aid Psychiatric History: Denies: Hx Panic Disorder, Hx Substance Abuse - Cancer History Cancer Type, 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 2004 RT GREAT TOE SURGERY;. 2007 GALLBLADDER, T. TUBAL LIGATION;. MRSA- RT ARM SWEAT GLANDS REMOVED, 2009. LT BACK SHOULDER; 2014. STAGE 2 CERVICAL CA PROCEDURE; - Immunization History Hx Pertussis Vaccination: No Immunizations Up to Date: Unable to Obtain/Confirm Infectious Disease History: Yes Infectious Disease History: Reports: Hx of Known/Suspected MRSA Denies: Traveled Outside the [place] in Last 30 Days - Family History Known Family History: Positive: None Negative: Cardiac Disease - Social History Occupation: Unemployed Lives: With Family Alcohol Use: None Hx Substance Use: No Substance Use Type: Reports: None Hx Tobacco Use: Yes Smoking Status (MU): Heavy Every Day Tobacco Smoker Amount Used/How Often: 1 PPD Review of Systems Constitutional: Negative Eyes: Negative Cardiovascular: Negative Respiratory: Negative Positive: no symptoms reported, see HPI Musculoskeletal: Negative Positive: Other - 10x4 patch of erythematous area to the right anterior lower extremity with pain and warmth Neurological: Negative Psychological: Normal All Other Systems Reviewed And Are Negative: Yes Physical Exam Triage Information Reviewed: Yes Vital Signs On Initial Exam: Initial Vitals Temp Pulse Resp BP Pulse Ox 98.2 F 86 16 107/45 98 11/19/16 17:32 11/19/16 17:32 11/19/16 17:32 11/19/16 17:32 11/19/16 17:32 Vital Signs Reviewed: Yes Appearance: Positive: Well-Appearing, Well-Nourished Skin: Positive: Warm, Skin Color Reflects Adequate Perfusion, Other - 10x4 patch of erythematous area to the right anterior lower extremity with pain and warmth Head/Face: Positive: Normal Head/Face Inspection Neck: Positive: Supple, No Lymphadenopathy Respiratory/Lung Sounds: Positive: Clear to Auscultation, Breath Sounds Present Cardiovascular: Positive: RRR, Pulses are Symmetrical in both Upper and Lower Extremities Musculoskeletal: Positive: Normal, Strength/ROM Intact Neurological: Positive: Speech Normal Psychiatric: Positive: Normal AVPU Assessment: Alert - Goff Coma Scale Coma Scale Total: 15 Diagnostics - Vital Signs Vital Signs Temp Pulse Resp BP Pulse Ox 11/19/16 17:52 98.4 F 71 16 107/63 97 11/19/16 17:32 98.2 F 86 16 107/45 98 - Laboratory Lab Statement: Any lab studies that have been ordered have been reviewed, and results considered in the medical decision making process. Course/Dx - Course Course Of Treatment: 10x4 patch of erythematous area to the right anterior lower extremity with pain and warmth requesting a bandage change. She states she had +MRSA and continues to be on Clindamycin x 4 months with improvement of other cellulitic infections, but this patch remains. Not getting better or worse. She has appt with wound clinic tomorrow afternoon. The area was cleaned and dried. Abx ointment applied. Telfa dressing applied and wrapped with mary. She is OK for discharge and encouraged to continue her at home oral abx as prescribed. - Differential Diagnoses - Skin Complaint Differential Diagnoses: Cellulitis, Contact Dermatitis, MRSA - Diagnoses Provider Diagnoses: Cellulitis due to MRSA Discharge - Discharge Plan Condition: Stable Disposition: HOME Referrals: Stormy Avery MD [Primary Care Provider] - Additional Instructions: Follow up with wound care clinic as scheduled tomorrow. Will not change antibiotics at this point Images - Images Full Body (No Head): 1 - 10x4 patch of erythematous area to the right anterior lower extremity with pain and warmth
[2016-11-19 18:55] VITALS: BP 140/64
== END 2016-11-19 18:53 | disposition home or self-care (01) ==
LOC: ED 17:29
DX: L03.116 Cellulitis of left lower limb (principal); A49.02 Methicillin resistant Staphylococcus aureus infection, unspecified site; F17.210 Nicotine dependence, cigarettes, uncomplicated
CPT/HCPCS: 99282

== ENCOUNTER → 2016-12-12 19:57 | Emergency (ER) | payer OTHER ==
[2016-12-12 20:19] VITALS: BP 103/86
--- NOTE | 2016-12-12 21:24 | ED ---
Skin Complaint - HPI Summary HPI Summary: 31F w/ PMH of MRSA presents with open wound to left achilles for couple days. Pt states it was a blister that opened. this is how her normal MRSA infections start. She tried to get a hold of the wound clinic and was unable to. They are currently seeing her for other wound that is healing. She has been applying Bactroban to this new wound. She ran out of stuff to wrap the ankle. She denies any fevers. She denies any spreading redness. She is currently on clindamycin for her other wound that is healing well. - History of Current Complaint Chief Complaint: EDRashSkinAbscess Time Seen by Provider: 12/12/16 20:31 Stated Complaint: POSSIBLE INFECTION ON LT FT Pain Intensity: 8 - Allergy/Home Medications Allergies/Adverse Reactions: Allergies Allergy/AdvReac Type Severity Reaction Status Date / Time Diphenhydramine Allergy Anaphylatic Verified 12/12/16 20:19 [From Benadryl] Shock Doxycycline Allergy Nausea And Verified 12/12/16 20:19 Vomiting Ibuprofen Allergy GI Upset Verified 12/12/16 20:19 Ketorolac Tromethamine Allergy Nausea And Verified 12/12/16 20:19 [From Toradol] Vomiting Linezolid Allergy Unknown Verified 12/12/16 20:19 Reaction Details Naproxen Allergy Nausea And Verified 12/12/16 20:19 Vomiting Penicillins [PCN] Allergy Rash Verified 12/12/16 20:19 Sulfamethoxazole Allergy Unknown Verified 12/12/16 20:19 w/Trimethoprim Reaction [From Bactrim] Details Tramadol Allergy Rash Verified 12/12/16 20:19 PMH/Surg Hx/FS Hx/Imm Hx Endocrine/Hematology History: Reports: Other Endocrine/Hematological Disorders - pituitary tumor Denies: Hx Anticoagulant Therapy, Hx Blood Disorders, Hx Diabetes, Hx Thyroid Disease, Hx Anemia Cardiovascular History: Denies: Hx Hypertension, Hx Pacemaker/ICD Respiratory History: Denies: Hx Asthma GI History: Reports: Hx Gall Bladder Disease - h/o cholecystectomy History: Reports: Other Problems/Disorders - KIDNEY AND BLADDER INFECTIONS Denies: Hx Renal Disease - HX KIDNEY INFECTIONS Sensory History: Denies: Hx Hearing Aid Psychiatric History: Denies: Hx Panic Disorder, Hx Substance Abuse - Cancer History Cancer Type, 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 2005 RT GREAT TOE SURGERY;. 2007 GALLBLADDER, T. TUBAL LIGATION;. MRSA- RT ARM SWEAT GLANDS REMOVED, 2009. LT BACK SHOULDER; 2014. STAGE 2 CERVICAL CA PROCEDURE; Infectious Disease History: Yes Infectious Disease History: Reports: Hx of Known/Suspected MRSA Denies: Traveled Outside the [place] in Last 30 Days - Family History Known Family History: Positive: None Negative: Cardiac Disease - Social History Alcohol Use: None Hx Substance Use: No Substance Use Type: Reports: None Hx Tobacco Use: Yes Smoking Status (MU): Heavy Every Day Tobacco Smoker Amount Used/How Often: 1 PPD Review of Systems Negative: Fever Negative: Chest Pain Negative: Shortness Of Breath Positive: Other - wound left ankle All Other Systems Reviewed And Are Negative: Yes Physical Exam Triage Information Reviewed: Yes Vital Signs On Initial Exam: Initial Vitals Temp Pulse Resp BP Pulse Ox 98.3 F 78 18 103/86 98 12/12/16 20:12 12/12/16 20:12 12/12/16 20:12 12/12/16 20:12 12/12/16 20:12 Vital Signs Reviewed: Yes Appearance: Positive: Well-Appearing Skin: Positive: Warm, Dry, Other - 3cm by 2cm superfiical open wound with serous drainage on left achilles. no surrounding erythema or streaking Head/Face: Positive: Normal Head/Face Inspection Eyes: Positive: Normal, Conjunctiva Clear Respiratory/Lung Sounds: Positive: Clear to Auscultation, Breath Sounds Present Cardiovascular: Positive: Normal, RRR Musculoskeletal: Positive: Strength/ROM Intact - left ankle, Other - good pulses - Nitin Coma Scale Coma Scale Total: 15 Diagnostics - Vital Signs Vital Signs Temp Pulse Resp BP Pulse Ox 12/12/16 20:12 98.3 F 78 18 103/86 98 - Laboratory Lab Statement: Any lab studies that have been ordered have been reviewed, and results considered in the medical decision making process. Course/Dx - Course Course Of Treatment: 31F w/ PMH of MRSA presents with open wound to left achilles for couple days. Pt states it was a blister that opened. this is how her normal MRSA infections start. She tried to get a hold of the wound clinic and was unable to. They are currently seeing her for other wound that is healing. She has been applying Bactroban to this new wound. She ran out of stuff to wrap the ankle which gave patient an CELESTE and some telfa. She denies any fevers. She denies any spreading redness. She is currently on clindamycin for her other wound that is healing well. on exam has 3cm by 2cm superifical open area with serous drainage. no surrounding erythema. I have seen this patient mulptile times for other wounds and this wound looks good for her. no evidence of dehiscence. she is taking tyenlol for pain which is appropiate. is requesting narcotic as does every time and explained the wound does not justify sending a script for such. patient left before discharge paperwork given. - Differential Diagnoses - Skin Complaint Differential Diagnoses: Abscess, Cellulitis, Contact Dermatitis - Diagnoses Provider Diagnoses: Wound of left ankle Discharge - Discharge Plan Condition: Good Disposition: HOME Patient Education Materials: Acute Wound Care (DC) Additional Instructions: Continue bactroban and clindamycin Follow up with wound clinic Take Tylenol for pain Return to ED if develop any new or worsening symptoms
== END | disposition home or self-care (01) ==
LOC: ED 19:57
DX: S90.912A Unspecified superficial injury of left ankle, initial encounter (principal); Z86.14 Personal history of Methicillin resistant Staphylococcus aureus infection; F17.210 Nicotine dependence, cigarettes, uncomplicated; X58.XXXA Exposure to other specified factors, initial encounter; Y93.9 Activity, unspecified; Y92.9 Unspecified place or not applicable
CPT/HCPCS: 99281

== ENCOUNTER 2017-01-03 13:14 | Emergency (ER) | payer OTHER ==
[2017-01-03 13:20] VITALS: BP 142/84
--- NOTE | 2017-01-03 14:26 | ED ---
Throat Pain/Nasal Congestion - HPI Summary HPI Summary: Pt here w/ dental pain over #17 - cracked last night while eating meatloaf. Tried to eat and drink today but was excruciating - she now has pain shooting into her jaw and up into her ear on this side. Has a denral appt next but can't wait that long. Denies drainage, gum swelling or face swelling, fever , chills, nausea, vomiting - no trouble breathing or swallowing. H/o recurrent issues w/ her teeth - believes this may be from a pituitary issue affecting her parathyroid hormone and eventually her calcium levels. Tried acetaminophen prior to arrival - cannot take NSAID's d/t h/o GI ulcer. - History of Current Complaint Chief Complaint: EDDentalPain Time Seen by Provider: 01/03/17 13:25 Hx Obtained From: Patient - Allergies/Home Medications Allergies/Adverse Reactions: Allergies Allergy/AdvReac Type Severity Reaction Status Date / Time Diphenhydramine Allergy Anaphylatic Verified 12/12/16 20:19 [From Benadryl] Shock Doxycycline Allergy Nausea And Verified 12/12/16 20:19 Vomiting Ibuprofen Allergy GI Upset Verified 12/12/16 20:19 Ketorolac Tromethamine Allergy Nausea And Verified 12/12/16 20:19 [From Toradol] Vomiting Linezolid Allergy Unknown Verified 12/12/16 20:19 Reaction Details Naproxen Allergy Nausea And Verified 12/12/16 20:19 Vomiting Penicillins [PCN] Allergy Rash Verified 12/12/16 20:19 Sulfamethoxazole Allergy Unknown Verified 12/12/16 20:19 w/Trimethoprim Reaction [From Bactrim] Details Tramadol Allergy Rash Verified 12/12/16 20:19 Home Medications: Home Medications Acetaminophen [Tylenol] 500 mg PO Q4H PRN 01/03/17 [History Confirmed 01/03/17] PMH/Surg Hx/FS Hx/Imm Hx Previously Healthy: Yes Endocrine/Hematology History: Reports: Other Endocrine/Hematological Disorders - pituitary tumor Denies: Hx Anticoagulant Therapy, Hx Blood Disorders, Hx Diabetes, Hx Thyroid Disease, Hx Anemia Cardiovascular History: Denies: Hx Hypertension, Hx Pacemaker/ICD Respiratory History: Denies: Hx Asthma GI History: Reports: Hx Gall Bladder Disease - h/o cholecystectomy History: Reports: Other Problems/Disorders - KIDNEY AND BLADDER INFECTIONS Denies: Hx Renal Disease - HX KIDNEY INFECTIONS Sensory History: Denies: Hx Hearing Aid EENT History: Reports: Other - poor dentition Psychiatric History: Denies: Hx Panic Disorder, Hx Substance Abuse - Cancer History Cancer Type, 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 2005 RT GREAT TOE SURGERY;. 2007 GALLBLADDER, T. TUBAL LIGATION;. MRSA- RT ARM SWEAT GLANDS REMOVED, 2009. LT BACK SHOULDER; 2014. STAGE 2 CERVICAL CA PROCEDURE; Infectious Disease History: Yes Infectious Disease History: Reports: Hx of Known/Suspected MRSA Denies: Traveled Outside the [place] in Last 30 Days - Family History Known Family History: Positive: None Negative: Cardiac Disease - Social History Occupation: Unemployed Lives: With Family Alcohol Use: Rare Hx Substance Use: No Substance Use Type: Reports: None Substance Use Comment - Amount & Last Used: pt denies abuse of opiates despite past use for dental issues Hx Tobacco Use: Yes Smoking Status (MU): Current Every Day Smoker Amount Used/How Often: 1 PPD Review of Systems Constitutional: Negative Eyes: Negative Positive: Dental Pain - see HPI Cardiovascular: Negative Respiratory: Negative Gastrointestinal: Negative Positive: no symptoms reported Musculoskeletal: Negative Skin: Negative Neurological: Negative Positive: Anxious All Other Systems Reviewed And Are Negative: Yes Physical Exam Triage Information Reviewed: Yes Vital Signs On Initial Exam: Initial Vitals Temp Pulse Resp BP Pulse Ox 97.9 F 75 17 142/84 100 01/03/17 13:18 01/03/17 13:18 01/03/17 13:18 01/03/17 13:18 01/03/17 13:18 Vital Signs Reviewed: Yes Appearance: Positive: Well-Appearing, Well-Nourished, Pain Distress - crying, holding Lt side of face - heat pack in place - reports this helps more than anything Skin: Positive: Warm - no overlying erythema of Lt side of face, Dry Head/Face: Positive: Normal Head/Face Inspection Eyes: Positive: Normal, EOMI. Negative: Discharge ENT: Positive: Hearing grossly normal, Pharynx normal, Pharyngeal erythema. Negative: Nasal congestion, Nasal drainage Dental: Positive: Gross Decay/Caries @, Dental Fracture @ - #17 along posterior aspect - TTP, no surounding erythema/edema/pustules/drainage Neck: Positive: Supple, Nontender, No Lymphadenopathy Respiratory/Lung Sounds: Positive: Clear to Auscultation, Breath Sounds Present. Negative: Stridor Cardiovascular: Positive: Normal Musculoskeletal: Positive: Normal, Strength/ROM Intact Neurological: Positive: Normal, Sensory/Motor Intact, Alert, Oriented to Person Place, Time, CN Intact II-III Psychiatric: Positive: Anxious - Nitin Coma Scale Coma Scale Total: 15 Procedures - Procedure Summary Procedure Summary: Pt swished w/ saline water and dried affected area then sealed w/ dycal - pt tolerated well and reports improvement of sharp pain - still has radiating aching pain - declines dental block "I'm afraid of needles" Diagnostics - Vital Signs Vital Signs Temp Pulse Resp BP Pulse Ox 01/03/17 13:18 97.9 F 75 17 142/84 100 - Laboratory Lab Statement: Any lab studies that have been ordered have been reviewed, and results considered in the medical decision making process. Re-Evaluation - Re-Evaluation First Eval Change: Improved EENT Course/Dx - Diagnoses Provider Diagnoses: Tooth fracture Discharge - Discharge Plan Condition: Stable Disposition: HOME Prescriptions: Acetaminop/Codeine 30 MG TAB* [Tylenol/Codeine 30 MG TAB*] 1 tab PO Q6H PRN #20 tab MDD 4 PRN Reason: Pain Patient Education Materials: Acute Dental Trauma (ED) Additional Instructions: DO not chew - stay hydrated with oral fluids You may continue to take acetaminophen and use heat packs for pain If you have breakthrough pain, you may take acetaminophen with codeine - sent to your pharmacy Follow-up with dentist as scheduled or sooner if possible *if you develop fever, chills, facial swelling, difficulty breathing or swallowing return to ED
== END 2017-01-03 14:43 | disposition home or self-care (01) ==
LOC: ED 13:14
DX: S02.5XXA Fracture of tooth (traumatic), initial encounter for closed fracture (principal); S06.9X0A Unspecified intracranial injury without loss of consciousness, initial encounter; X58.XXXA Exposure to other specified factors, initial encounter; Y93.9 Activity, unspecified; Y92.9 Unspecified place or not applicable; F17.210 Nicotine dependence, cigarettes, uncomplicated; F41.9 Anxiety disorder, unspecified
CPT/HCPCS: 99282

== ENCOUNTER 2017-01-04 13:33 | Emergency (ER) | payer OTHER ==
[2017-01-04 13:40] VITALS: BP 155/98
[2017-01-04] MEDS ORDERED: oxyCODONE TAB* 5 MG TAB PO ONE (14:29)
--- NOTE | 2017-01-04 14:31 | ED ---
Throat Pain/Nasal Congestion - HPI Summary HPI Summary: 31 female presents to ED with complaints of dental pain that began 2 days ago after it cracking while eating meatloaf. Patient was seen yesterday in ED for same problem, had a filling/seal placed however states it fell off and the pain has worsened. Was taking tylenol w/ codeine without relief. Also taking left over clindamycin for the past couple of days and still has some left that she is taking. States pain starts over tooth #17 and is radiating into her ear and jaw of left side. Has a dental appt next but is very uncomfortable and can't wait. Denies drainage, swelling, fever, chills, n/v. No trouble breathing or swallowing. Admits to some facial swelling beginning this morning. Has been applying ice. Recurrent issues with teeth. No PMHx other than pituitary tumor and being checked for cervical cancer. Unable to take NSAIDs due to GI upset/ ulcer. - History of Current Complaint Chief Complaint: EDDentalPain Time Seen by Provider: 01/04/17 13:41 Hx Obtained From: Patient Onset/Duration: Sudden Onset, Lasting Days, Still Present, Worse Since Severity: Severe Associated Signs And Symptoms: Positive: Negative Cough: None - Allergies/Home Medications Allergies/Adverse Reactions: Allergies Allergy/AdvReac Type Severity Reaction Status Date / Time Diphenhydramine Allergy Anaphylatic Verified 12/12/16 20:19 [From Benadryl] Shock Doxycycline Allergy Nausea And Verified 12/12/16 20:19 Vomiting Ibuprofen Allergy GI Upset Verified 12/12/16 20:19 Ketorolac Tromethamine Allergy Nausea And Verified 12/12/16 20:19 [From Toradol] Vomiting Linezolid Allergy Unknown Verified 12/12/16 20:19 Reaction Details Naproxen Allergy Nausea And Verified 12/12/16 20:19 Vomiting Penicillins [PCN] Allergy Rash Verified 12/12/16 20:19 Sulfamethoxazole Allergy Unknown Verified 12/12/16 20:19 w/Trimethoprim Reaction [From Bactrim] Details Tramadol Allergy Rash Verified 12/12/16 20:19 PMH/Surg Hx/FS Hx/Imm Hx Endocrine/Hematology History: Reports: Other Endocrine/Hematological Disorders - pituitary tumor Denies: Hx Anticoagulant Therapy, Hx Blood Disorders, Hx Diabetes, Hx Thyroid Disease, Hx Anemia Cardiovascular History: Denies: Hx Hypertension, Hx Pacemaker/ICD Respiratory History: Denies: Hx Asthma GI History: Reports: Hx Gall Bladder Disease - h/o cholecystectomy History: Reports: Other Problems/Disorders - KIDNEY AND BLADDER INFECTIONS Denies: Hx Renal Disease - HX KIDNEY INFECTIONS Sensory History: Denies: Hx Hearing Aid Psychiatric History: Denies: Hx Panic Disorder, Hx Substance Abuse - Cancer History Cancer Type, 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 2004 RT GREAT TOE SURGERY;. 2007 GALLBLADDER, T. TUBAL LIGATION;. MRSA- RT ARM SWEAT GLANDS REMOVED, 2009. LT BACK SHOULDER; 2014. STAGE 2 CERVICAL CA PROCEDURE; - Immunization History Immunizations Up to Date: Yes Infectious Disease History: No Infectious Disease History: Reports: Hx of Known/Suspected MRSA Denies: Traveled Outside the [place] in Last 30 Days - Family History Known Family History: Positive: None Negative: Cardiac Disease - Social History Alcohol Use: Rare Hx Substance Use: No Substance Use Type: Reports: None Substance Use Comment - Amount & Last Used: pt denies abuse of opiates despite past use for dental issues Hx Tobacco Use: Yes Smoking Status (MU): Current Every Day Smoker Amount Used/How Often: 1 PPD Review of Systems Constitutional: Negative Positive: Dental Pain, Ear Ache Cardiovascular: Negative Respiratory: Negative Gastrointestinal: Negative Positive: Headache All Other Systems Reviewed And Are Negative: Yes Physical Exam Triage Information Reviewed: Yes Vital Signs On Initial Exam: Initial Vitals Temp Pulse Resp BP Pulse Ox 98.1 F 82 20 155/98 100 01/04/17 13:37 01/04/17 13:37 01/04/17 13:37 01/04/17 13:37 01/04/17 13:37 Vital Signs Reviewed: Yes Appearance: Positive: Well-Appearing, Well-Nourished, Pain Distress - tearful and holding left side of face Skin: Positive: Warm, Skin Color Reflects Adequate Perfusion, Dry, Other - no significant edema noted. Negative: Cold, Soft, Mass @, Erythema @ Head/Face: Positive: Normal Head/Face Inspection Eyes: Positive: Conjunctiva Clear ENT: Positive: Normal ENT inspection, Hearing grossly normal, Pharynx normal, TMs normal, TM red. Negative: Tonsillar swelling, Tonsillar exudate Dental: Positive: Gross Decay/Caries @, Dental Fracture @ - left side, #17. Negative: Abscess @, Cellulitis @, Cervical Lymphadenopathy Neck: Positive: Supple, Nontender, No Lymphadenopathy Respiratory/Lung Sounds: Positive: Clear to Auscultation, Breath Sounds Present. Negative: Rales, Rhonchi, Wheezes Cardiovascular: Positive: Normal, RRR, Pulses are Symmetrical in both Upper and Lower Extremities. Negative: Murmur, Rub Musculoskeletal: Positive: Normal, Strength/ROM Intact Neurological: Positive: Normal, Sensory/Motor Intact, Alert, Oriented to Person Place, Time - Nitin Coma Scale Coma Scale Total: 15 Diagnostics - Vital Signs Vital Signs Temp Pulse Resp BP Pulse Ox 01/04/17 13:37 98.1 F 82 20 155/98 100 - Laboratory Lab Statement: Any lab studies that have been ordered have been reviewed, and results considered in the medical decision making process. EENT Course/Dx - Course Course Of Treatment: given lolicaine and pain relief while in ED. had relief. already taking antibiotics per patient. recommend to continue salt water swishes and oral lidocaine. try and get sooner appointment with dentist. pain management. ice and follow up. aware of worsening signs and symptoms. no other concern at this time. - Differential Diagnoses Differential Diagnoses: Dental Abscess, Dental Caries, Fractured Tooth - Diagnoses Provider Diagnoses: Fracture, tooth, Pain, dental Discharge - Discharge Plan Condition: Stable Disposition: HOME Prescriptions: HYDROcodone/ACETAMIN 5-325 MG* [[place] 5-325 TAB*] 1 tab PO Q8H PRN #6 tab MDD 2 PRN Reason: Pain Patient Education Materials: Toothache (ED) Referrals: Stormy Avery MD [Primary Care Provider] - Additional Instructions: Take medication as needed for pain. Do not take any until bedtime. Continue ice. Try and get into dentist sooner. Salt water swishes. Oral lidocaine. Fluids. Return if any new or worsening symptoms.
== END 2017-01-04 14:50 | disposition home or self-care (01) ==
LOC: ED 13:33
DX: K03.81 Cracked tooth (principal); K08.89 Other specified disorders of teeth and supporting structures; D35.2 Benign neoplasm of pituitary gland; Z87.440 Personal history of urinary (tract) infections; Z86.14 Personal history of Methicillin resistant Staphylococcus aureus infection; Z90.49 Acquired absence of other specified parts of digestive tract; Z88.6 Allergy status to analgesic agent; Z88.5 Allergy status to narcotic agent; Z88.2 Allergy status to sulfonamides; Z88.8 Allergy status to other drugs, medicaments and biological substances; F17.210 Nicotine dependence, cigarettes, uncomplicated
CPT/HCPCS: 99282; A9270-GY

== ENCOUNTER 2017-01-29 16:25 | Emergency (ER) | payer OTHER ==
[2017-01-29 16:31] VITALS: BP 110/34
[2017-01-29] MEDS ORDERED: Acetaminophen TAB* 325 MG ONE (18:27)
[2017-01-29] MEDS: Acetaminophen TAB* 325 MG PO ONE ×2 (18:28→18:36)
[2017-01-29] MEDS ORDERED: Mupirocin 2% OINT* TUBE TOPICAL ONE (19:37)
[2017-01-29] MEDS ORDERED: HYDROcodone/ACETAMIN 5-325 MG* 1 TAB PO ONE (20:03)
--- NOTE | 2017-01-31 08:50 | ED ---
Complex/Multi-Sys Presentation - HPI Summary HPI Summary: Pt here w/ skin wound to Rt chest. Accidentally fell down stairs the other day - dogs pulled her down. She is doing well overall, just has a few bruises but also reports an abrasion to her Rt chest. This is superficial and scabbed but she is concerned w/ h/o MRSA. Denies fever, chills, nausea, vomiting, diarrhea, SOB, ab pain, head/neck/extremity pain. She did not strike her head nor have LOC. She also presents c/o B/L otalgia. She has been treated with otic anbx drops as well as PO anbx. Sx are improving however she is still having some pain here. Cannot take NSAID's and tylenol is not helping. - History Of Current Complaint Chief Complaint: EDDizziness Time Seen by Provider: 01/29/17 17:38 Hx Obtained From: Patient - Allergies/Home Medications Allergies/Adverse Reactions: Allergies Allergy/AdvReac Type Severity Reaction Status Date / Time Diphenhydramine Allergy Anaphylatic Verified 12/12/16 20:19 [From Benadryl] Shock Doxycycline Allergy Nausea And Verified 12/12/16 20:19 Vomiting Ibuprofen Allergy GI Upset Verified 12/12/16 20:19 Ketorolac Tromethamine Allergy Nausea And Verified 12/12/16 20:19 [From Toradol] Vomiting Linezolid Allergy Unknown Verified 12/12/16 20:19 Reaction Details Naproxen Allergy Nausea And Verified 12/12/16 20:19 Vomiting Penicillins [PCN] Allergy Rash Verified 12/12/16 20:19 Sulfamethoxazole Allergy Unknown Verified 12/12/16 20:19 w/Trimethoprim Reaction [From Bactrim] Details Tramadol Allergy Rash Verified 12/12/16 20:19 PMH/Surg Hx/FS Hx/Imm Hx Previously Healthy: No - chronic B/L ear issue - undergoing tx currently Endocrine/Hematology History: Reports: Other Endocrine/Hematological Disorders - pituitary tumor Denies: Hx Anticoagulant Therapy, Hx Blood Disorders, Hx Diabetes, Hx Thyroid Disease, Hx Anemia Cardiovascular History: Denies: Hx Hypertension, Hx Pacemaker/ICD Respiratory History: Denies: Hx Asthma GI History: Reports: Hx Gall Bladder Disease - h/o cholecystectomy History: Reports: Other Problems/Disorders - KIDNEY AND BLADDER INFECTIONS Denies: Hx Renal Disease - HX KIDNEY INFECTIONS Sensory History: Denies: Hx Hearing Aid Psychiatric History: Denies: Hx Panic Disorder, Hx Substance Abuse - Cancer History Cancer Type, 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 2004 RT GREAT TOE SURGERY;. 2007 GALLBLADDER, T. TUBAL LIGATION;. MRSA- RT ARM SWEAT GLANDS REMOVED, 2009. LT BACK SHOULDER; 2014. STAGE 2 CERVICAL CA PROCEDURE; - Immunization History Immunizations Up to Date: Yes Infectious Disease History: No Infectious Disease History: Reports: Hx of Known/Suspected MRSA Denies: Traveled Outside the [place] in Last 30 Days - Family History Known Family History: Positive: None Negative: Cardiac Disease - Social History Occupation: Unemployed Lives: With Family Alcohol Use: None Hx Substance Use: No Substance Use Type: Reports: None Substance Use Comment - Amount & Last Used: pt denies abuse of opiates despite past use for dental issues Hx Tobacco Use: Yes Smoking Status (MU): Current Every Day Smoker Amount Used/How Often: 1 PPD Review of Systems Constitutional: Negative Negative: Fever, Chills Eyes: Negative Negative: Photophobia, Blurred Vision, Diplopia Positive: Ear Ache. Negative: Epistaxis, Dental Pain, Sore Throat, Nasal Discharge Cardiovascular: Negative Respiratory: Negative Gastrointestinal: Negative Positive: no symptoms reported Musculoskeletal: Negative Skin: Other - wound on chest Neurological: Negative Positive: Anxious All Other Systems Reviewed And Are Negative: Yes Physical Exam Triage Information Reviewed: Yes Vital Signs On Initial Exam: Initial Vitals Temp Pulse Resp BP Pulse Ox 98.3 F 85 18 110/34 98 01/29/17 16:28 01/29/17 16:28 01/29/17 16:28 01/29/17 16:28 01/29/17 16:28 Vital Signs Reviewed: Yes Appearance: Positive: Well-Appearing, No Pain Distress, Well-Nourished Skin: Positive: Warm, Dry - 4cm x 2cm area of superficial abrasion with scabbing over Rt chest - no bettie erythema, no edema, no d/c, NTTP, no fluctuance or streaking -appears to be healing well Head/Face: Positive: Normal Head/Face Inspection Eyes: Positive: Normal ENT: Positive: Hearing grossly normal, Pharynx normal, TMs normal - EAC's w/ mild erythema B/L - patent, no d/c, no lesions. Negative: Nasal congestion, TM bulging, TM dull, TM red, Tonsillar swelling, Tonsillar exudate, Trismus, Muffled voice Dental: Negative: Abscess @ Neck: Positive: Supple, Nontender, No Lymphadenopathy Respiratory/Lung Sounds: Positive: Breath Sounds Present Cardiovascular: Positive: Normal Musculoskeletal: Positive: Normal, Strength/ROM Intact Neurological: Positive: Normal, Sensory/Motor Intact, Alert, Oriented to Person Place, Time, CN Intact II-III Psychiatric: Positive: Anxious - pt is calm during HPI and PE however becomes tearful before d/c as she does not feel her otalgia pain is well controlled - she admits she's exhausted from all of her recent ailments. 1 x norco provided in ED as she's allergic to NSAID's and has already tried acetaminophen alone. Advised continued use of otic medication and close f/u w/ PCP/ENT if pain persists or worsens. Also encouraged using cotton in each EAC to protect from the elements -pt agrees w/ plan. Diagnostics - Vital Signs Vital Signs Temp Pulse Resp BP Pulse Ox 01/29/17 16:28 98.3 F 85 18 110/34 98 - Laboratory Lab Statement: Any lab studies that have been ordered have been reviewed, and results considered in the medical decision making process. Complex Multi-Symp Course/Dx Course Of Treatment: Pt advised on wound care and to apply bactroban until cleared. If worse, supplied with clindamycin and she's quite exacrbated by multiple and recalcitrant recent medical events. She will only start clindamycin if wound becomes infected (reviewed specific findings). She also agrees to f/u w/ PCP if wound appears worse instead of better. SHe will return to ED if danger s/sx prsent. Her ear do not appear to be in an acute state of disease. She appears to be improving from a course of OM/OE and will most likely heal w/o adverse outcome however advised close f/u w/ PCP/ENT in the event her course changes. 1 x norco given here for pain however longer course not appropriate at this time. Her pain may be exacerbated by her exhaustion. Hoping norco reduces pain to allow her to sleep well tonight to heal. SHe agrees a/ plan. - Diagnoses Provider Diagnoses: Abrasion of chest, Otalgia of both ears Discharge - Discharge Plan Condition: Stable Disposition: HOME Prescriptions: Clindamycin HCl [Clindamycin 150 MG CAP*] 300 mg PO QID #80 cap Mupirocin 2% OINT* [Bactroban 2 % Oint*] 1 applic TOPICAL TID #1 tube Patient Education Materials: Abrasion (ED) Referrals: [facility] [Outside] Additional Instructions: Gently wash wound daily with antibacterial soap and water - rinse well and pat dry with clean cloth then reapply bactroban and clean gauze dressing If wound does not appear to be improving after 3-5 days, or if wound becomes more red, swollen, hot, draining purulent fluid, you develop fever, chills, start taking oral antibiotic. If symptoms persist for 3-4 days despite taking oral antibiotic, seek medical attention for evaluation at PCP, Urgent Care or ED. You may apply warm, epsom salt compresses to reduce pain/swelling
== END 2017-01-29 20:11 | disposition home or self-care (01) ==
LOC: ED 16:25
DX: S20.319A Abrasion of unspecified front wall of thorax, initial encounter (principal); W10.9XXA Fall (on) (from) unspecified stairs and steps, initial encounter; Y93.9 Activity, unspecified; Y92.9 Unspecified place or not applicable; Y99.9 Unspecified external cause status; H92.03 Otalgia, bilateral
CPT/HCPCS: 99282; A9270-GY

== ENCOUNTER 2017-02-20 18:30 | Emergency (ER) | payer OTHER ==
[2017-02-20 18:41] VITALS: BP 127/80
--- NOTE | 2017-02-20 20:18 | RAD ---
Indication: Head injury. History of pituitary tumor. CT of the brain was performed without IV contrast. Ventricular structures are midline. No midline shift is noted. The extra-axial spaces are unremarkable. There is no evidence of intracranial mass or hemorrhage. No other high or low density lesions identified. Mastoid air cells and paranasal sinuses are otherwise unremarkable. IMPRESSION: No intracranial mass or hemorrhage is identified.
--- NOTE | 2017-02-20 20:19 | RAD ---
Indication: Facial injury after fall. CT of the facial bones was obtained in the axial plane. Sagittal and coronal reconstructed images were obtained. The skull base demonstrates no fracture. The frontal sinuses are intact. The orbits are intact. Zygomatic arch is intact without fracture. The mandible appears to be intact with no fracture. The body and ramus of the mandible are unremarkable. Nasal spine and nasal arch demonstrates no fracture. The hard palate and pterygoid plates are intact. Multiple dental caries are noted. Mastoid air cells are otherwise unremarkable. IMPRESSION: No fracture of the facial bones is identified.
--- NOTE | 2017-02-20 20:20 | RAD ---
Indication: Neck injury after fall. CT of the cervical spine was obtained in the axial plane. Sagittal and coronal reconstructed images were obtained. The skull base demonstrates no fracture. The C1 ring is intact. The vertebral bodies appear normal in height. Disc spaces all well-preserved. No fracture is identified. No focal protrusion is identified. IMPRESSION: No fracture of the cervical spine is noted.
--- NOTE | 2017-02-20 20:21 | RAD ---
Indication: Left hand pain. 2 views of left hand demonstrates no fracture. No other bone or joint abnormality is noted. IMPRESSION: No fracture of the left hand is noted.
--- NOTE | 2017-02-20 20:21 | RAD ---
Indication: Right hand pain. 2 views of the right hand demonstrates no fracture. No other bone or joint abnormality is identified. IMPRESSION: No fracture of the right hand is noted.
--- NOTE | 2017-02-20 20:22 | RAD ---
Indication: Bilateral wrist injury. 3 views of the right wrist and 3 views of left wrist demonstrates no fracture. The radius and ulna are intact. The carpal bones are well aligned. IMPRESSION: No fracture of the wrist are noted on either side.
[2017-02-20] MEDS ORDERED: oxyCODONE/Acetamin 5/325 MG* TAB PO ONE (21:08)
--- NOTE | 2017-02-20 21:10 | ED ---
Elmo Godfrey Alfonso, scribed for Maurisio Garcia MD on 02/20/17 at 2010 . Adult Trauma - HPI Summary HPI Summary: This patient is a 31 year old F presenting to [facility] accompanied by husbands with a chief complaint of two falls earlier today. She first smashed my face onto the van and then slipped in the mud. She reports hitting her whole face , bridge of my nose, forehead, and both wrists. The patient rates the aching pain 8/10 in severity. Patient reports dizziness (before fall), LOC, disorientation (s/p fall), neck pain, bilateral wrist pain, and bilateral hand pain. - History of Current Complaint Chief Complaint: EDFacialInjury Stated Complaint: HEAD INJURY/LOC Hx Obtained From: Patient Mechanism of Injury: Direct Blow Loss of Consciousness: dazed Onset/Duration: Started Hours Ago, Traumatic Onset of Pain: Prior to Arrival Current Severity: Moderate Pain Intensity: 8 Pain Scale Used: 0-10 Numeric Associated Signs & Symptoms: Positive: Other: - dizziness (before fall), LOC, disorientation (s/p fall), neck pain, bilateral wrist pain, and bilateral hand pain. - Allergy/Home Medications Allergies/Adverse Reactions: Allergies Allergy/AdvReac Type Severity Reaction Status Date / Time Diphenhydramine Allergy Anaphylatic Verified 12/12/16 20:19 [From Benadryl] Shock Doxycycline Allergy Nausea And Verified 12/12/16 20:19 Vomiting Ibuprofen Allergy GI Upset Verified 12/12/16 20:19 Ketorolac Tromethamine Allergy Nausea And Verified 12/12/16 20:19 [From Toradol] Vomiting Linezolid Allergy Unknown Verified 12/12/16 20:19 Reaction Details Naproxen Allergy Nausea And Verified 12/12/16 20:19 Vomiting Penicillins [PCN] Allergy Rash Verified 12/12/16 20:19 Sulfamethoxazole Allergy Unknown Verified 12/12/16 20:19 w/Trimethoprim Reaction [From Bactrim] Details Tramadol Allergy Rash Verified 12/12/16 20:19 PMH/Surg Hx/FS Hx/Imm Hx Endocrine/Hematology History: Reports: Other Endocrine/Hematological Disorders - pituitary tumor Denies: Hx Anticoagulant Therapy, Hx Blood Disorders, Hx Diabetes, Hx Thyroid Disease, Hx Anemia Cardiovascular History: Denies: Hx Hypertension, Hx Pacemaker/ICD Respiratory History: Denies: Hx Asthma GI History: Reports: Hx Gall Bladder Disease - h/o cholecystectomy History: Reports: Other Problems/Disorders - KIDNEY AND BLADDER INFECTIONS Denies: Hx Renal Disease - HX KIDNEY INFECTIONS Sensory History: Denies: Hx Hearing Aid Psychiatric History: Denies: Hx Panic Disorder, Hx Substance Abuse - Cancer History Cancer Type, 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 2004 RT GREAT TOE SURGERY;. 2007 GALLBLADDER, T. TUBAL LIGATION;. MRSA- RT ARM SWEAT GLANDS REMOVED, 2009. LT BACK SHOULDER; 2014. STAGE 2 CERVICAL CA PROCEDURE; Infectious Disease History: Yes Infectious Disease History: Reports: Hx of Known/Suspected MRSA Denies: Traveled Outside the [place] in Last 30 Days - Family History Known Family History: Positive: Diabetes - Father Negative: Cardiac Disease - Social History Alcohol Use: None Hx Substance Use: No Substance Use Type: Reports: None Substance Use Comment - Amount & Last Used: pt denies abuse of opiates despite past use for dental issues Hx Tobacco Use: Yes Smoking Status (MU): Heavy Every Day Tobacco Smoker - 1/2 PPD for 15 years. Amount Used/How Often: 1 PPD Review of Systems Negative: Fever Positive: Other - two falls to whole face, bridge of my nose, forehead, and both wrists, neck pain, bilateral wrist pain, and bilateral hand pain. Neurological: Other - dizziness (before fall), LOC, disorientation (s/p fall), All Other Systems Reviewed And Are Negative: Yes Physical Exam - Summary Physical Exam Summary: Appearance: Well-appearing, Well-nourished Skin: Warm Eyes: Normal ENT: Tenderness of sinuses diffusely. Neck: Supple, nontender, FROM Respiratory: Clear to auscultation Cardiovascular: Normal Abdomen: Soft, nontender Bowel: Present Musculoskeletal: Strength/ROM Intact, Mild tenderness of hands and wrists bilaterally all with FROM. Neurological: Normal, A&Ox3 Psychiatric: Normal Triage Information Reviewed: Yes Vital Signs On Initial Exam: Initial Vitals Temp Pulse Resp BP Pulse Ox 98.0 F 74 17 127/80 99 02/20/17 18:34 02/20/17 18:34 02/20/17 18:34 02/20/17 18:34 02/20/17 18:34 Vital Signs Reviewed: Yes - Nitin Coma Scale Coma Scale Total: 15 Diagnostics - Vital Signs Vital Signs Temp Pulse Resp BP Pulse Ox 02/20/17 18:34 98.0 F 74 17 127/80 99 - Laboratory Lab Statement: Any lab studies that have been ordered have been reviewed, and results considered in the medical decision making process. - Radiology Right hand XR Radiology Interpretation Completed By: Radiologist - No fracture of the right hand is noted. ED physician has reviewed this radiology report and agrees. Left hand X-Ray Radiology Interpretation Completed By: Radiologist - No fracture of the left hand is noted. ED physician has reviewed this radiology report and agrees. Bilateral wrist X-Ray Radiology Interpretation Completed By: Radiologist - No fracture of the wrist are noted on either side. ED physician has reviewed this radiology report and agrees. - CT Brain CT Interpretation Completed By: Radiologist - No intracranial mass or hemorrhage is identified. ED physician has reviewed this radiology report and agrees. Maxillofacial CT Interpretation Completed By: Radiologist - No fracture of the facial bones is identified. ED physician has reviewed this radiology report and agrees. C-Spine CT Interpretation Completed By: Radiologist - No fracture of the cervical spine is noted. ED physician has reviewed this radiology report and agrees. - EKG 2016 Cardiac Rate: NL EKG Rhythm: Sinus Rhythm - 73 BPM EKG Interpretation: RSR' in V1 and V2, probably normal variant. Re-Evaluation - Re-Evaluation First Eval Change: Improved - pt feels better after medication, neuro intact Adult Trauma Course/Dx - Course Assessment/Plan: pt feels better after meds, I denied the patient's request for narcotic pain medictions based on past history of having multiple prescriptions for opioids in the past. agrees to and understands dc isntructions. - Diagnoses Provider Diagnoses: Contusion Discharge - Discharge Plan Condition: Improved Disposition: HOME Patient Education Materials: Contusion in Adults (ED) Referrals: No Primary Care Phys,NOPCP [Primary Care Provider] - Additional Instructions: PLEASE RETURN TO THE EMERGENCY ROOM IF YOU HAVE ANY WORSENING OR CONCERNING SYMPTOMS PLEASE MAKE AN APPOINTMENT FIRST THING IN THE MORNING TO BE SEEN BY YOUR PRIMARY CARE DOCTOR WITHIN 1 WEEK The documentation as recorded by the Elmo sommer Alfonso accurately reflects the service I personally performed and the decisions made by me, Maurisio Garcia MD.
== END 2017-02-20 21:24 | disposition home or self-care (01) ==
LOC: ED 18:30
DX: T14.8XXA Other injury of unspecified body region, initial encounter (principal); R42 Dizziness and giddiness; R55 Syncope and collapse; M54.2 Cervicalgia; M25.532 Pain in left wrist; M25.531 Pain in right wrist; M79.642 Pain in left hand; M79.641 Pain in right hand; W19.XXXA Unspecified fall, initial encounter; Y93.9 Activity, unspecified; Y92.9 Unspecified place or not applicable
CPT/HCPCS: 70450; 70486; 72125; 93005; 99282; A9270-GY

== ENCOUNTER 2017-04-23 13:52 | Emergency (ER) | payer OTHER ==
--- NOTE | 2017-04-23 15:31 | RAD ---
INDICATION: Right rib pain COMPARISON: None TECHNIQUE: Multiple views of the ribs were obtained. FINDINGS: Bones: There is no evidence of acute rib fracture. LUNGS: The lungs are clear. There is no pneumothorax. Pleural spaces: There is no evidence of hemothorax. Other: None IMPRESSION: NEGATIVE EXAMINATION.
--- NOTE | 2017-04-23 15:43 | ED ---
Complex/Multi-Sys Presentation - HPI Summary HPI Summary: 31 female presents to ED with complaints of right rib pain that began 2 days ago after falling and slipping on ice. Patient was evaluated at [facility] and diagnosed with fractured tailbone. However patient states they never x-rayed or were concerned about her ribs. Patient states the pain medication she was given is not helping, given Florence. Patient states the rib pain has been worsening, is worse with movement, palpation and deep breaths. Denies trouble breathing or SOB. No other complaints. No PMHx. No medications other than Florence. No other injuries that were not already addressed yesterday. Last took Florence at 1pm today. States sometimes she is taking 2 pills due to pain. - History Of Current Complaint Chief Complaint: EDChestWallPain Time Seen by Provider: 04/23/17 14:27 Hx Obtained From: Patient Onset/Duration: Sudden Onset, Lasting Days, Still Present, Worse Since Timing: Constant Severity Currently: Severe Severity Initially: Moderate Location: Pain At: - right ribs Character: Sharp, Throbbing Aggravating Factor(s): movement, deep breaths Alleviating Factor(s): rest, nothing - Allergies/Home Medications Allergies/Adverse Reactions: Allergies Allergy/AdvReac Type Severity Reaction Status Date / Time MS Diphenhydramine Allergy Anaphylatic Verified 12/12/16 20:19 [From Benadryl] Shock MS Doxycycline [Doxycycline] Allergy Nausea And Verified 12/12/16 20:19 Vomiting MS Ibuprofen [Ibuprofen] Allergy GI Upset Verified 12/12/16 20:19 MS Ketorolac Tromethamine Allergy Nausea And Verified 12/12/16 20:19 [From Toradol] Vomiting MS Linezolid [Linezolid] Allergy Unknown Verified 12/12/16 20:19 Reaction Details MS Naproxen [Naproxen] Allergy Nausea And Verified 12/12/16 20:19 Vomiting MS Penicillins [PCN] Allergy Rash Verified 12/12/16 20:19 MS Sulfamethoxazole Allergy Unknown Verified 12/12/16 20:19 w/Trimethoprim Reaction [From Bactrim] Details MS Tramadol [Tramadol] Allergy Rash Verified 12/12/16 20:19 PMH/Surg Hx/FS Hx/Imm Hx Endocrine/Hematology History: Reports: Other Endocrine/Hematological Disorders - pituitary tumor Denies: Hx Anticoagulant Therapy, Hx Blood Disorders, Hx Diabetes, Hx Thyroid Disease, Hx Anemia Cardiovascular History: Denies: Hx Hypertension, Hx Pacemaker/ICD Respiratory History: Denies: Hx Asthma GI History: Reports: Hx Gall Bladder Disease - h/o cholecystectomy History: Reports: Other Problems/Disorders - KIDNEY AND BLADDER INFECTIONS Denies: Hx Renal Disease - HX KIDNEY INFECTIONS Sensory History: Denies: Hx Hearing Aid Psychiatric History: Denies: Hx Panic Disorder, Hx Substance Abuse - Cancer History Cancer Type, 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 2005 RT GREAT TOE SURGERY;. 2007 GALLBLADDER, T. TUBAL LIGATION;. MRSA- RT ARM SWEAT GLANDS REMOVED, 2009. LT BACK SHOULDER; 2014. STAGE 2 CERVICAL CA PROCEDURE; - Immunization History Immunizations Up to Date: Yes Infectious Disease History: No Infectious Disease History: Reports: Hx of Known/Suspected MRSA Denies: Traveled Outside the [place] in Last 30 Days - Family History Known Family History: Positive: None, Diabetes - Father Negative: Cardiac Disease - Social History Alcohol Use: None Hx Substance Use: No Substance Use Type: Reports: None Substance Use Comment - Amount & Last Used: pt denies abuse of opiates despite past use for dental issues Hx Tobacco Use: Yes Smoking Status (MU): Heavy Every Day Tobacco Smoker Amount Used/How Often: 1 PPD Review of Systems Constitutional: Negative Cardiovascular: Negative Respiratory: Negative Positive: Arthralgia, Myalgia - right ribs All Other Systems Reviewed And Are Negative: Yes Physical Exam Triage Information Reviewed: Yes Vital Signs On Initial Exam: Initial Vitals Temp Pulse Resp BP Pulse Ox 98.6 F 110 18 119/84 99 04/23/17 13:54 04/23/17 13:54 04/23/17 13:54 04/23/17 13:54 04/23/17 13:54 Vital Signs Reviewed: Yes Appearance: Positive: Well-Appearing, Well-Nourished, Pain Distress - mild Skin: Positive: Warm, Skin Color Reflects Adequate Perfusion, Dry, Other - no ecchymosis, hematoma, deformity or other signs of trauma noted. Negative: Cold , Numb, Cyanosis @, Pale, Erythema @ Head/Face: Positive: Normal Head/Face Inspection Eyes: Positive: Conjunctiva Clear Respiratory/Lung Sounds: Positive: Clear to Auscultation, Breath Sounds Present. Negative: Rales, Rhonchi, Wheezes Cardiovascular: Positive: Normal, RRR, Pulses are Symmetrical in both Upper and Lower Extremities, Other - pain to palpation of right lower ribs, no obvious deformity or bruising noted. Negative: Murmur, Rub Abdomen Description: Positive: Nontender, No Organomegaly, Soft. Negative: Bruit, CVA Tenderness (R), CVA Tenderness (L), Distended, Guarding Bowel Sounds: Positive: Present Musculoskeletal: Positive: Normal, Strength/ROM Intact. Negative: Limited @, Interruption @, Pain @ Neurological: Positive: Normal, Sensory/Motor Intact, Alert, Oriented to Person Place, Time, Normal Gait Diagnostics - Vital Signs Vital Signs Temp Pulse Resp BP Pulse Ox 04/23/17 13:54 98.6 F 110 18 119/84 99 - Laboratory Lab Statement: Any lab studies that have been ordered have been reviewed, and results considered in the medical decision making process. - Radiology ribs, chest Xray Interpretation: No Acute Changes - NEGATIVE EXAMINATION. Radiology Interpretation Completed By: Radiologist Complex Multi-Symp Course/Dx Course Of Treatment: i stop Reference #: [id number]. patient given norco yesterday. has allergies to ibuprofen, toradol, tramadol and other pain analgesics. xray obtained and negative. appears to possibly be suffering from contusion due to fall/trauma a few days ago. Heat/ice. Rest. continue already prescribed pain medication. Educated unable to fill any more narcotics due to having a 3 day supply until 04/25/17. No findings requiring narcotic pain management at today's visit. Follow up with sports medicine for fractured tailbone as previously instructed. Aware of new/ worsening symptoms to return for. Follow up pcp. no other concerns or findings at this time. normal vitals. - Diagnoses Differential Diagnoses/HQI/PQRI: Other - contusion, rib fracture, rib contusion Provider Diagnoses: Contusion of rib on right side, Rib pain on right side Discharge - Discharge Plan Condition: Stable Disposition: HOME Patient Education Materials: Rib Contusion (ED) Referrals: [facility] [Outside] Bennett Alvarenga [Medical Doctor] - Additional Instructions: Take already prescribed medication as directed. Apply ice and rest. Follow up with pcp and sports medicine. Any new or worsening symptoms please seek medical attention promptly.
[2017-04-23] MEDS ORDERED: Cyclobenzaprine TAB* 10 MG PO ONE (15:49)
[2017-04-23 15:59] VITALS: BP 133/78
== END 2017-04-23 15:58 | disposition home or self-care (01) ==
LOC: ED 13:52
DX: S20.211A Contusion of right front wall of thorax, initial encounter (principal); W00.0XXA Fall on same level due to ice and snow, initial encounter; Y92.9 Unspecified place or not applicable; F17.200 Nicotine dependence, unspecified, uncomplicated; Z88.6 Allergy status to analgesic agent; Z88.3 Allergy status to other anti-infective agents; Z88.0 Allergy status to penicillin; Z88.2 Allergy status to sulfonamides
CPT/HCPCS: 99282; A9270-GY

== ENCOUNTER → 2018-10-09 15:10 | Emergency (ER) | payer OTHER ==
[2018-10-09 15:25] VITALS: BP 124/86
--- NOTE | 2018-10-09 15:58 | ED ---
Skin Complaint - HPI Summary HPI Summary: The patient is a 33 y/o F presenting to [facility] with a chief complaint of sudden onset burn to the posterior left hand two days ago. She reports that she wasnt looking and picked up a hot morris on the stove to which she is now suffering a burn on the left posterior hand at the thumb and some scratches secondary to a Brillo pad. The left wrist has become erythematous and pruritic, and she is concerned for MRSA infection as she has extensive MRSA hx. When she has had MRSA before, she had been treated with Bactroban, Doxycycline, and Zofran. The pain in her hand is rated 5/10 in severity. Heavy every day smoker, no EtOH, no substance use. - History of Current Complaint Chief Complaint: EDRashSkinAbscess Stated Complaint: BURN TO LEFT WRIST PER PT Hx Obtained From: Patient Onset/Duration: Started Days Ago - two, Still Present Skin Exposure Onset/Duration: Days Ago Timing: Lasting Days Onset Severity: Mild Current Severity: Moderate Pain Intensity: 5 Pain Scale Used: 0-10 Numeric Skin Location: Hand - left posterior hand near thumb Character: Pruritus, Pain, Redness Aggravating Symptom(s): Nothing Alleviating Symptom(s): Nothing - Allergy/Home Medications Allergies/Adverse Reactions: Allergies Allergy/AdvReac Type Severity Reaction Status Date / Time MS Diphenhydramine Allergy Anaphylatic Verified 10/09/18 15:25 [From Benadryl] Shock MS Doxycycline [Doxycycline] Allergy Nausea And Verified 10/09/18 15:25 Vomiting MS Ibuprofen [Ibuprofen] Allergy GI Upset Verified 10/09/18 15:25 MS Ketorolac Tromethamine Allergy Nausea And Verified 10/09/18 15:25 [From Toradol] Vomiting MS Linezolid [Linezolid] Allergy Unknown Verified 10/09/18 15:25 Reaction Details MS Naproxen [Naproxen] Allergy Nausea And Verified 10/09/18 15:25 Vomiting MS Penicillins [PCN] Allergy Rash Verified 10/09/18 15:25 MS Sulfamethoxazole Allergy Unknown Verified 10/09/18 15:25 w/Trimethoprim Reaction [From Bactrim] Details MS Tramadol [Tramadol] Allergy Rash Verified 10/09/18 15:25 PMH/Surg Hx/FS Hx/Imm Hx Endocrine/Hematology History: Reports: Other Endocrine/Hematological Disorders - pituitary tumor Denies: Hx Anticoagulant Therapy, Hx Blood Disorders, Hx Diabetes, Hx Thyroid Disease, Hx Anemia Cardiovascular History: Denies: Hx Hypertension, Hx Pacemaker/ICD Respiratory History: Denies: Hx Asthma GI History: Reports: Hx Gall Bladder Disease - h/o cholecystectomy History: Reports: Other Problems/Disorders - KIDNEY AND BLADDER INFECTIONS Denies: Hx Renal Disease - HX KIDNEY INFECTIONS Musculoskeletal History: Denies: Hx Rheumatoid Arthritis, Hx Osteoporosis Sensory History: Denies: Hx Hearing Aid Psychiatric History: Denies: Hx Panic Disorder, Hx Substance Abuse - Cancer History Cancer Type, 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 2005 RT GREAT TOE SURGERY;. 2007 GALLBLADDER, T. TUBAL LIGATION;. MRSA- RT ARM SWEAT GLANDS REMOVED, 2009. LT BACK SHOULDER-DRAINAGE TUBE; 2013. STAGE 2 CERVICAL CA PROCEDURE; Infectious Disease History: Yes Infectious Disease History: Reports: Hx of Known/Suspected MRSA Denies: Traveled Outside the [place] in Last 30 Days - Family History Known Family History: Positive: Diabetes - Father Negative: Cardiac Disease - Social History Alcohol Use: None Hx Substance Use: No Substance Use Type: Reports: None Substance Use Comment - Amount & Last Used: pt denies abuse of opiates despite past use for dental issues Hx Tobacco Use: Yes Smoking Status (MU): Heavy Every Day Tobacco Smoker Amount Used/How Often: 1 PPD Review of Systems Positive: Other - pain in left hand and wrist secondary to burn Positive: Other - burn on the left dorsal hand near thumb, erythematous and pruritic skin on the left wrist extending from wrist, scratches on left hand All Other Systems Reviewed And Are Negative: Yes Physical Exam - Summary Physical Exam Summary: Appearance: Well-appearing, Well-nourished, lying in bed comfortable Skin: Second degree joe appearing to be healing well over the dorsal aspect of the first metacarpal, Lymphangitic streaking in the left wrist into the forearm but no fluctuance, Warm, dry, no obvious rash Eyes: sclera anicteric, no conjunctival pallor ENT: mucous membranes moist Neck: deferred Respiratory: No signs of respiratory distress Cardiovascular: Appears well perfused, pulses are nml Abdomen: deferred Musculoskeletal: Moving all 4 extremities without obvious discomfort Neurological: Awake and alert, mentation is normal, speech is fluent and appropriate Psychiatric: affect is normal, does not appear anxious or depressed Triage Information Reviewed: Yes Vital Signs On Initial Exam: Initial Vitals Temp Pulse Resp BP Pulse Ox 98.7 F 55 16 124/86 98 10/09/18 15:20 10/09/18 15:20 10/09/18 15:20 10/09/18 15:20 10/09/18 15:20 Vital Signs Reviewed: Yes Diagnostics - Vital Signs Vital Signs Temp Pulse Resp BP Pulse Ox 10/09/18 15:20 98.7 F 55 16 124/86 98 - Laboratory Lab Statement: Any lab studies that have been ordered have been reviewed, and results considered in the medical decision making process. Re-Evaluation - Re-Evaluation First Eval Re-Evaluation Time: 16:05 Comment: I spoke with the patient concerning discharge and follow-up with orthopedics. Course/Dx - Course Course Of Treatment: The patient is a 33 y/o F presenting to [facility] with a chief complaint of sudden onset burn to the posterior left hand at the thumb after picking up a hot morris and scratches secondary to a Brillo pad two days ago. She is concerned for MRSA infection as she has extensive MRSA hx and now has erythema and pruritus on the left wrist. Upon physical exam, the patient exhibits second degree joe appearing to be healing well over the dorsal aspect of the first metacarpal and lymphangitic streaking in the left wrist into the forearm without fluctuance. I spoke with Dr. Barrow, orthopedics, at 1600, and he recommends Keflex and Bactrim with follow up with orthopedics on Saturday10/08/2018. The patient is allergic to Bactrim, so she will be discharged home with rx for Keflex and Doxycyline and follow up with Dr. Barrow on 10/13/2018. She is advised to come back to the ED if her symptoms worsen. She is diagnosed with second degree joe and tenosynovitis of the left hand. - Diagnoses Provider Diagnoses: Second degree burn of left hand, Tenosynovitis of left hand - Physician Notifications Discussed Care Of Patient With: Collin Barrow - orthopedics Time Discussed With Above Provider: 16:00 Instructed by Provider To: Other - I discussed the patient's case with Dr. Barrow, and he recommends Keflex and Bactrim and follow-up with him in a few days. Discharge - Sign-Out/Discharge Documenting (check all that apply): Patient Departure - Patient will be discharged home. Patient Received Moderate/Deep Sedation with Procedure: No - Discharge Plan Condition: Good Disposition: HOME Prescriptions: Cephalexin CAP* [Keflex CAP*] 500 mg PO QID #40 cap DOXYcycline CAP(*) [DOXYcycline 100MG CAP(*)] 100 mg PO BID #20 cap Patient Education Materials: Tenosynovitis (ED) Referrals: Collin Barrow MD [Medical Doctor] - 4 Days Additional Instructions: If your pain, redness or swelling is worsening over the weekend despite the antibiotics, come back to the ED. If it is staying stable or improving, have Dr. Barrow or someone in his office take a look at it Saturday. Call today or tomorrow to make the appt. - Billing Disposition and Condition Condition: GOOD Disposition: Home - Attestation Statements Document Initiated by Pratima: Yes Documenting Scribe: Bettina Miller Provider For Whom Pratima is Documenting (Include Credential): Dr. Yrn Boone MD Scribe Attestation: Bettina Godfrey scribed for Dr. Yrn Boone MD on 10/10/18 at 1226. Scribe Documentation Reviewed: Yes Provider Attestation: The documentation as recorded by the Bettina sommer accurately reflects the service I personally performed and the decisions made by me, Dr. Yrn Boone MD Status of Scriblisa Document: Viewed
== END | disposition home or self-care (01) ==
LOC: ED 15:10
DX: T23.202A Burn of second degree of left hand, unspecified site, initial encounter (principal); M65.842 Other synovitis and tenosynovitis, left hand; X15.3XXA Contact with hot saucepan or skillet, initial encounter; Y93.G3 Activity, cooking and baking; Y92.9 Unspecified place or not applicable; F17.210 Nicotine dependence, cigarettes, uncomplicated; Z88.1 Allergy status to other antibiotic agents; Z88.5 Allergy status to narcotic agent; Z88.0 Allergy status to penicillin; Z88.2 Allergy status to sulfonamides; Z88.8 Allergy status to other drugs, medicaments and biological substances
CPT/HCPCS: 99282

== ENCOUNTER 2019-02-28 15:27 | Emergency (ER) | payer OTHER ==
[2019-02-28 15:35] VITALS: BP 146/92
--- OUTSIDE RECORDS SUMMARY | 2019-02-28 15:47 | XMS REPORT | Continuity of Care Document ---
:1985 External Reference #:[id number] Author Name MONICA Manriquez-Cde (transmitted by agent of provider Radha Luis) Address [address], [place] [address] Care Team Providers Name Role Phone Lawson Galvan MD - Hospitalist Care Team Information [place] [phone] Problems Active Problems Provider Date Disorder of pituitary gland Kemi Cavazos M.D. Onset: 03/22/2015 Low back pain Kemi Cavazos M.D. Onset: 03/22/2015 Arthralgia of the ankle and/or foot Kemi Cavazos M.D. Onset: 03/22/2015 Sciatica Kemi Cavazos M.D. Onset: 03/22/2015 Insomnia Kemi Cavazos M.D. 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 Amenorrhea Lawson Galvan MD Onset: 08/26/2018 Bipolar disorder Lawson Galvan MD Onset: 08/26/2018 Migraine with typical aura Lawson Glavan MD Onset: 08/26/2018 Chest pain Lawson Galvan MD Onset: 08/26/2018 Skin sensation disturbance Lawson Galvan MD Onset: 08/26/2018 Otitis media Lawson Galvan MD Onset: 09/09/2018 Cellulitis of left hand Mack Lares MD Onset: 10/10/2018 Social History Type Date Description Comments Sex Unknown Tobacco Use Start: Unknown 1 PPD ETOH Use Denies alcohol use Tobacco Use Start: Unknown Heavy tobacco smoker 1.5 ppd (more than 10 cigarettes/day) Recreational Drug Use Denies Drug Use Recreational Drug Use Regularly uses Marijuana 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 Smoking Status Reviewed: 02/25/19 Heavy tobacco smoker 1.5 ppd (more than 10 cigarettes/day) Exercise Type/Frequency Exercises regularly Allergies, Adverse Reactions, Alerts Active Allergies Reaction Severity Comments Date Benadryl rash 06/11/2007 Tramadol stomach upset 03/22/2015 Penicillin hives 03/22/2015 Bactrim rash face bumps 03/29/2015 Toradol upset stomach 03/29/2015 Ibuprofen GI bleeding 08/23/2016 Doxycycline 08/26/2018 Zyvox 08/26/2018 Adhesive 10/14/2018 Medications Active Medications SIG Qnty Indications Ordering Provider Date Acetaminophen 1-2 tabs 4x a Unknown 500mg Tablets day as needed History Medications Amoxicillin/Clavulanate take 1 pill 20tabs H66.91 Lawson Galvan 09/09/2018 - Potassium twice a day. 10/09/2018 875-125mg Tablets Immunizations Description No Information Available Vital Signs Date Vital Result Comment 02/25/2019 10:46am Height 68 inches 5'8" Weight 188.00 lb Heart Rate 65 /min BP Systolic 126 mmHg BP Diastolic 70 mmHg O2 % BldC Oximetry 97 % BMI (Body Mass Index) 28.6 kg/m2 10/14/2018 9:32am Height 68 inches 5'8" Weight 187.50 lb Heart Rate 54 /min BP Systolic 102 mmHg BP Diastolic 74 mmHg Respiratory Rate 14 /min Pain Level 4 BMI (Body Mass Index) 28.5 kg/m2 Results Test Acquired Date Facility Test Result H/L Range Note Laboratory test 02/25/2019 [facility] Cytology <pending> finding [address] [place] [address] [phone] Procedures Date Code Description Status 09/09/2018 42733 EKG Tracing & Interpretation Completed 09/02/2018 49096 ECHO Transthoracic, Real-Time 2D With Doppler And Color Completed Flow 09/02/2018 90435 ECHO Transthoracic, Real-Time 2D With Doppler And Color Completed Flow Medical Devices Description No Information Available Encounters Type Date Location Provider Dx Diagnosis Office Visit 10/14/2018 [facility] Collin Moreland, L03.114 Cellulitis of 9:15a at [place] left upper limb Office Visit 10/10/2018 [facility] Mack Lares, L03.114 Cellulitis of 11:00a at [place] left upper limb Office Visit 09/09/[address] [facility] Internal Lawson Galvan MD H66.91 Otitis media, 1:40p Medicine - [address] unspecified, right ear R53.1 Weakness R60.9 Edema, unspecified R07.9 Chest pain, unspecified G43.109 Migraine with aura, not intractable, w/o status migrainosus Assessments Date Code Description Provider 02/25/2019 Z01.419 Encounter for gynecological Daniel Manriquez examination (general) (routine) without abnormal findings 02/25/2019 Z86.32 Personal history of gestational Daniel Manriquez diabetes 10/14/2018 L03.114 Cellulitis of left upper limb Collin Moreland MD 10/10/2018 L03.114 Cellulitis of left upper limb Mack Lares MD 09/09/2018 H66.91 Otitis media, unspecified, right ear Lawson Galvan MD 09/09/2018 R53.1 Weakness Lawson Galvan MD 09/09/2018 R60.9 Edema, unspecified Lawson Galvan MD 09/09/2018 R07.9 Chest pain, unspecified Lawson Galvan MD 09/09/2018 G43.109 Migraine with aura, not intractable, Lawson Galvan MD without status migraino 09/02/2018 R01.1 Cardiac murmur, unspecified Jimy Arenas M.D. 09/02/2018 R01.1 Cardiac murmur, unspecified [facility] 09/02/2018 R53.1 Weakness [facility] 09/02/2018 R60.9 Edema, unspecified [facility] Schedule Plan of Treatment Future Appointment(s):03/25/2019 10:45 am - Nahum Turner M.D. at [facility]02/25/2019 - Marissa ManriquezeZ01.419 Encounter for gynecological examination (general) (routine) without abnormal findingsComments:I will send you a letter with pap results. Please call the office if you do not receive your results within two weeks.Z86.32 Personal history of gestational diabetes Functional Status Description No Information Available Mental Status Description No Information Available Referrals Refer to Reason for Referral Status Appt Date Harriett Rich MD Sent [address] [place] [address] [phone]
== END 2019-02-28 16:34 | disposition left against medical advice (07) ==
LOC: ED 15:27
DX: Z53.21 Procedure and treatment not carried out due to patient leaving prior to being seen by health care provider (principal)
CPT/HCPCS: 99281